=== PATIENT | male | born 1960 | race Caucasian/White ===

== ENCOUNTER 2020-02-24 13:58 | Outpatient (CLI) | payer OTHER, SELFPAY ==
[2020-02-24 15:30] LABS: Basophils % 0.6 %; Eosinophils # 0.3 10^3/uL (0.0-0.8); Eosinophils % 5.7 %; Hemoglobin 14.4 g/dL (11.7-16.6); Lymphocytes % 20.9 %; Mean Corpuscular Hemoglobin 28.3 pg (28.0-34.0); Mean Corpuscular Volume 88.6 fL (80-94); Mean Platelet Volume 11.2 fL (7.4-10.4); Monocytes # 0.6 10^3/uL (0.2-0.9); Monocytes % 11.7 %; Neutrophils % 60.9 %; Nucleated Red Blood Cells % 0 %; Platelet Count 90 10^3/cmm (130-400); Red Blood Count 5.08 10^6/uL (4.1-5.3); Red Cell Distribution Width 14.2 % (12.1-15.1); White Blood Count 4.9 10^3/uL (4.0-10.0)
[2020-02-24 16:00] LABS: Alanine Aminotransferase 26 U/L (0-41); Albumin Level 3.8 g/dL (3.5-5.2); Alkaline Phosphatase 119 IU/L (40-130); Anion Gap 12.9 (5-19); Aspartate Amino Transferase 34 U/L (0-40); Blood Urea Nitrogen 11 mg/dL (6-20); Calcium 9.4 mg/dL (8.5-10.5); Carbon Dioxide 25 mmol/L (22-29); Chloride 102 mmol/L (98-107); Globulin 4.6 g/dL (1.3-4.6); Glomerular Filtration Rate 98.9 mL/min (90-130); Glucose 208 mg/dL (65-115); Osmolality Calculated 284 mOsm/kg (285-295); Potassium 3.9 mmol/L (3.5-5.1); Sodium 136 mmol/L (136-145); Total Protein 8.4 g/dL (6.6-8.7)
== END 2020-02-24 13:59 | disposition home or self-care (01) ==
LOC: LAB 14:12
PROVIDERS: Visit Provider Nurse Practitioner
DX: Z01.89 Encounter for other specified special examinations (principal)
CPT/HCPCS: 80053; 84443; 85025

== ENCOUNTER 2023-10-14 19:23 | Inpatient (IN) | payer OTHER, SELFPAY ==
[2023-10-14 19:24] VITALS: BP 118/61; PULSE 78; RESP 15; TEMP 37.7; O2SAT 94; BMI 22.3
--- NOTE | 2023-10-14 19:35 | CTR_ITS ---
PROCEDURE INFORMATION: Exam: CT Head Without Contrast Exam date and time: 10/15/2023 12:38 AM Age: 62 years old Clinical indication: Altered mental status/memory loss; Patient HX: Confused; Additional info: Head injury TECHNIQUE: Imaging protocol: Computed tomography of the head without contrast. Radiation optimization: All CT scans at this facility use at least one of these dose optimization techniques: automated exposure control; mA and/or kV adjustment per patient size (includes targeted exams where dose is matched to clinical indication); or iterative reconstruction. REPORTING DATA: Count of CT and Cardiac NM exams in prior 12 months: This patient has received 0 known CTs and 0 known cardiac nuclear medicine studies in the 12 months prior to the current study. COMPARISON: No relevant prior studies available. RADIATION DOSE METRICS: Total DLP (mGy-cm): 1123.03 FINDINGS: Brain: No acute intracranial hemorrhage. No acute territorial region of awde-white dedifferentiation. No extra-axial collection. No mass effect or midline shift. Encephalomalacia/gliosis in left frontoparietal and right temporo-occipital lobes, consistent with sequela of remote infarcts. Small remote right cerebellar infarct and chronic appearing bilateral basal ganglia lacunar infarcts. Generalized cerebral atrophy. Moderate to severe burden of nonspecific white matter hypoattenuation, most likely chronic microvascular ischemic change. No acute intracranial hemorrhage. No extra-axial collection. No mass effect or midline shift. Cerebral ventricles: No acute hyrocephalus. Paranasal sinuses: Visualized sinuses are well-aerated. No fluid levels. Mastoid air cells: Visualized mastoid air cells are well aerated. Orbital cavities: No acute abnormality. Bones/joints: No acute calvarial fracture. Soft tissues: No acute abnormality. CT/CT head wo con* [id number] IMPRESSION: 1. No acute intracranial hemorrhage. 2. No evidence of acute territorial infarct. Multifocal encephalomalacia/gliosis and moderate to severe background chronic microvascular ischemic change. Given this may mask foci of acute ischemia and no prior imaging is available for comparison, if there is high clinical suspicion for acute infarct, recommend MRI.
[2023-10-14] MEDS: sodium chloride 0.9% 1,000 ML 999 ML IV ×2 (19:55→21:42)
[2023-10-14 20:04] LABS: Basophils % 0.4 %; Eosinophils # 0.3 10^3/uL (0.0-0.8); Hematocrit 33.9 % (37-53); Lymphocytes # 0.6 10^3/uL (0.8-4.8); Lymphocytes % 12.7 %; Mean Corpuscular HGB Conc 33.9 g/dL (30-55); Mean Corpuscular Hemoglobin 31.7 pg (27-33); Mean Corpuscular Volume 93.4 fl (82-101); Mean Platelet Volume 10.7 fL (7.4-10.4); Monocytes # 0.7 10^3/uL (0.2-0.9); Monocytes % 14.5 %; Neutrophils # 2.96 10^3/uL (1.8-7.7); Nucleated Red Blood Cells % 0 %; Platelet Count 81 10^3/cmm (157-399); Red Blood Count 3.63 10^6/uL (3.85-5.65); Red Cell Distribution Width 17.6 % (12.1-15.1); White Blood Count 4.49 10^3/uL (3.29-11.43)
[2023-10-14 20:17] LABS: INR 1.55 (0.8-1.2)
[2023-10-14 20:18] LABS: Alanine Aminotransferase 48 U/L (0-41); Albumin Level 2.2 g/dL (3.5-5.2); Alkaline Phosphatase 166 U/L (40-130); Anion Gap 10.5 (5-19); Aspartate Amino Transferase 83 U/L (0-40); Blood Urea Nitrogen 10 mg/dL (8-23); Calcium 7.9 mg/dL (8.5-10.5); Carbon Dioxide 25 mmol/L (22-29); Chloride 98 mmol/L (98-107); Globulin 4.2 g/dL (1.3-4.6); Glomerular Filtration Rate 168.5 mL/min (90-130); Glucose 86 mg/dL (65-115); Osmolality Calculated 268 mOsm/kg (285-295); Potassium 3.5 mmol/L (3.5-5.1); Sodium 130 mmol/L (136-145); Total Bilirubin 2.5 mg/dL (0.15-1.2); Total Protein 6.4 g/dL (6.6-8.7)
[2023-10-14 20:19] LABS: Lactic Sepsis W/Reflex 1.4 mmol/L (0.5-2.2); Partial Thromboplastin Time 50.4 SECONDS (23.9-36.7)
[2023-10-14 20:23] LABS: Creatine Phosphokinase 625 U/L (39-308)
[2023-10-14 20:33] LABS: Ammonia 62 umol/L (16-60)
[2023-10-14 20:34] VITALS: BP 106/66; PULSE 103; RESP 18; O2SAT 96
[2023-10-14] MEDS: ketorolac 30 mg/mL INJ IVP (21:42)
[2023-10-14] MEDS: vancomycin 2,000 MG/400 ML PIGGYBACK 200 MG IV (21:43)
[2023-10-14 22:00] VITALS: PULSE 117
--- NOTE | 2023-10-14 22:13 | CTR_ITS ---
PROCEDURE INFORMATION: Exam: CT Abdomen And Pelvis With Contrast Exam date and time: 10/15/2023 12:43 AM Age: 62 years old Clinical indication: Abdominal pain; Generalized; Additional info: Abd pain TECHNIQUE: Imaging protocol: Computed tomography of the abdomen and pelvis with contrast. Radiation optimization: All CT scans at this facility use at least one of these dose optimization techniques: automated exposure control; mA and/or kV adjustment per patient size (includes targeted exams where dose is matched to clinical indication); or iterative reconstruction. Contrast material: OMNI 350; Contrast volume: 100 ml; Contrast route: INTRAVENOUS (IV); REPORTING DATA: Count of CT and Cardiac NM exams in prior 12 months: This patient has received 0 known CTs and 0 known cardiac nuclear medicine studies in the 12 months prior to the current study. COMPARISON: CR (CHEST, ) 10/15/2023 12:29 AM RADIATION DOSE METRICS: Total DLP (mGy-cm): 1195.53 FINDINGS: Pleural spaces: Small left and trace right pleural effusions. Subsegmental atelectasis in the right lung Liver: Cirrhosis. Sequela of portal hypertension, including splenomegaly, extensive portosystemic collaterals including large gastric and esophageal varices, and large volume ascites. Few circumscribed fluid density lesions in the liver, most likely cysts. Gallbladder and bile ducts: Prominent gallbladder venous collaterals. Pancreas: Mild pancreatic atrophy. No main duct dilation. Spleen: See Liver finding. Adrenal glands: Unremarkable. Kidneys and ureters: No hydronephrosis or hydroureter. No renal or ureteral calculi. Stomach and bowel: Colonic diverticula without CT evidence of acute diverticulitis. No bowel obstruction. Submucosal edema in the gastric antrum/pylorus. Appendix: Appendix is normal. Intraperitoneal space: See Liver finding. Vasculature: Moderate atherosclerosis. No aortic aneurysm. Enlarged mesenteric veins. Main portal vein is thrombosed with multiple venous collaterals in the macy hepatis, suggesting chronic thrombosis. Segment of the SMV is thrombosed. Lymph nodes: Diffuse upper abdominal, mesenteric, and to a lesser extent retroperitoneal adenopathy. There is also inguinal adenopathy. Urinary bladder: Unremarkable as visualized. Reproductive: Unremarkable as visualized. Bones/joints: No acute fracture. Right femur cephalomedullary gee and screw. Soft tissues: Small umbilical hernia containing congested fat. Mild diffuse body wall anasarca. Gynecomastia. Other findings: Sequela of granulomatous disease. CT/CT abdomen pelvis w con* [id number] IMPRESSION: 1. Cirrhosis with sequela of portal hypertension, including splenomegaly, extensive portosystemic collaterals including large gastric and esophageal varices, and large volume ascites. 2. Main portal vein is thrombosed with multiple venous collaterals in the macy hepatis, suggesting chronic thrombosis/cavernous transformation. Segment of the SMV is thrombosed. 3. Submucosal edema in the gastric antrum/pylorus, can be seen with gastritis or portal gastropathy. 4. Nonspecific lymphadenopathy may be related to portal hypertension. 5. Small left and trace right pleural effusions and right basilar atelectasis. Cardiomegaly.
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
[2023-10-14 22:37] LABS: Alcohol Level < 10 mg/dL (0-10)
[2023-10-14 22:48] VITALS: BP 92/60; PULSE 86; RESP 16; O2SAT 90
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
--- NOTE | 2023-10-14 23:36 | XRR_ITS ---
PROCEDURE INFORMATION: Exam: XR Chest Exam date and time: 10/15/2023 12:29 AM Age: 62 years old Clinical indication: Other: Evalaute for effusion TECHNIQUE: Imaging protocol: Radiologic exam of the chest. Views: 1 view. COMPARISON: No relevant prior studies available. FINDINGS: Lungs: Mild pulmonary vascular congestion. Right basilar atelectasis. Pleural spaces: Small left and trace right pleural effusions, better appreciated on same-day CT abdomen/pelvis. Heart/Mediastinum: Cardiomegaly. Bones/joints: No acute abnormality. XR/XR chest 1V portable [id number] IMPRESSION: 1. Small left and trace right pleural effusions, better appreciated on same-day CT abdomen/pelvis. Right basilar atelectasis. 2. Cardiomegaly. 3. Mild pulmonary vascular congestion.
[2023-10-14 23:52] LABS: CKMB 8.6 ng/mL (0-10.4); CKMB Relative Index 1.3 % (0.0-5.3)
[2023-10-15] VITALS (227 sets, daily range): BP systolic 71–134; BP diastolic 37–86; PULSE 80–126; RESP 5–39; TEMP 36.1–38.3; O2SAT 73–100; BMI 28.3
[2023-10-15] MEDS: iohexol 350 mg/mL 500 mL Btl (per mL) IV (00:49)
--- NOTE | 2023-10-15 01:09 | PC.NURSE ---
RN counted belongings with Nurse Tech at nurse's station and in front of pt. Pt had a shirt and pair of pants placed into a bag. 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 These items were placed into a bag with pt label on them. Belongings communicated to ICU RNs upon arrival to unit and left in the pt ICU room.
[2023-10-15] MEDS: cefTRIAXone 1,000 MG in sodium chloride 0.9% (plus) 50 ML 100 MG IV ×2 (01:33→23:25)
[2023-10-15 01:40] LABS: Influenza A by IFA negative (Negative); Influenza B by IFA negative (Negative); SARS Covid-2 Antigen negative (Negative)
[2023-10-15] MEDS: lactulose oral liq 20 gm/30 mL UDC PO ×4 (02:03→22:36)
[2023-10-15] MEDS: ondansetron 2 mg/ML SDV 2 mL 4 MG IVP (02:07)
--- NOTE | 2023-10-15 03:18 | PC.NURSE ---
Patient arrived on unit 0055. Patient oriented to self and place, confused to year and situation. Intermittent episodes of confusion and irritation with staff. Patient has been unable to void and bladder scan is questionable due to ascites. Hospitalist notified of concerns and requested staff not to attempt another catheter unless patient is symptomatic.
[2023-10-15 04:59] LABS: Amphetamines Screen Urine Negative (Negative); Barbiturates Screen Urine Negative (Negative); Benzodiazepines Screen Urine Negative (Negative); Cocaine Screen Urine Negative (Negative); Opiate Screen Urine Negative (Negative); PCP Screen Urine Negative (Negative); THC Screen Urine Positive (Negative)
[2023-10-15] MEDS: TRAMadol 50 mg Tablet PO (06:03)
[2023-10-15 06:05] LABS: Basophils # 0.1 10^3/uL (0.0-0.1); Basophils % 1.1 %; Eosinophils # 0.3 10^3/uL (0.0-0.8); Eosinophils % 7.7 %; Hematocrit 36.6 % (37-53); Lymphocytes # 0.6 10^3/uL (0.8-4.8); Lymphocytes % 12.5 %; Mean Corpuscular HGB Conc 32.8 g/dL (30-55); Mean Corpuscular Hemoglobin 31.7 pg (27-33); Mean Corpuscular Volume 96.8 fl (82-101); Mean Platelet Volume 10.7 fL (7.4-10.4); Monocytes # 0.5 10^3/uL (0.2-0.9); Neutrophils # 2.92 10^3/uL (1.8-7.7); Neutrophils % 66.5 %; Nucleated Red Blood Cells % 0 %; Platelet Count 75 10^3/cmm (157-399); Red Blood Count 3.78 10^6/uL (3.85-5.65); Red Cell Distribution Width 17.8 % (12.1-15.1)
--- NOTE | 2023-10-15 06:20 | ECG_ITS ---
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 Measurements Intervals [place] Rate: 116 P: 74 MT: 174 QRS: 12 QRSD: 100 T: 156 QT: 321 QTc: 448 Interpretive Statements SINUS TACHYCARDIA WITH OCCASIONAL VENTRICULAR PREMATURE COMPLEXES ST DEVIATION AND MODERATE T-WAVE ABNORMALITY, CONSIDER LATERAL ISCHEMIA [-0.1+ mV T WAVE IN I/aVL/V5/V6] INTERPRETATION BASED ON A DEFAULT AGE OF 40 YEARS No previous ECG available for comparison Electronically Signed On 10-15-2023 9:15:20 [facility] TECHNICIAN by Jean Claude Schmitt M.D. [id number]
[2023-10-15 06:22] LABS: Ammonia 69 umol/L (16-60)
[2023-10-15 06:29] LABS: Alanine Aminotransferase 49 U/L (0-41); Albumin Level 2.1 g/dL (3.5-5.2); Alkaline Phosphatase 142 U/L (40-130); Anion Gap 11.5 (5-19); Aspartate Amino Transferase 82 U/L (0-40); Blood Urea Nitrogen 9 mg/dL (8-23); Calcium 7.7 mg/dL (8.5-10.5); Carbon Dioxide 24 mmol/L (22-29); Chloride 101 mmol/L (98-107); Globulin 4.1 g/dL (1.3-4.6); Glomerular Filtration Rate 168.5 mL/min (90-130); Glucose 72 mg/dL (65-115); Osmolality Calculated 273 mOsm/kg (285-295); Potassium 3.5 mmol/L (3.5-5.1); Sodium 133 mmol/L (136-145); Total Bilirubin 3.1 mg/dL (0.15-1.2); Total Protein 6.2 g/dL (6.6-8.7)
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
[2023-10-15] MEDS: albumin 25 G/100 ML BAG 60 G IV ×2 (08:01→14:29)
[2023-10-15] MEDS: pantoprazole DR 40 mg Tablet PO (08:40)
[2023-10-15] MEDS: folic acid 1 mg Tablet PO (08:40)
[2023-10-15] MEDS: multivitamin therapeutic Tablet 1 TAB PO (08:40)
[2023-10-15] MEDS: thiamine 100 mg Tablet PO (08:40)
--- NOTE | 2023-10-15 09:00 | US_ITS ---
WS: [id number] ULTRASOUND-GUIDED PARACENTESIS CLINICAL INFORMATION: ascites COMPARISON: None. Procedure Informed consent: The risks, benefits, and alternatives of the procedure were discussed with the chintan ent. Verbal and written consent was obtained. Timeout: A timeout was performed to confirm the correct patient, procedure, and site. Preparation: A suitable skin site was identified. The patient was prepped and draped in usual sterile fashion. Lidocaine 1% was used for local anesthesia. Catheter: 4 Upper Sorbian One-step Yueh catheter. Side: RIGHT lower quadrant. Fluid Volume: 6500 ml Color: Clear yellow DISPOSITION: Discarded safely. Complications: None. Patient disposition: Discharged from the department in stable condition. IMPRESSION: 1. Uncomplicated ultrasound-guided paracentesis. 2. Removal of 6500 cc 3. 50 cc of fluid sent for requested laboratory tests.
--- NOTE | 2023-10-15 09:13 | PC.PHAR ---
Pharmacokinetic dosing service Date: 10/15/23 Time: 914 Objective: Patient: Naldo Steve Floor: ICU-10 Age: 62 yo Serum creatinine: 0.5 mg/dL Height: 73.0 Inches Weight (kg): 97.522 Diagnosis: Relevant medical/social history: Cultures and sensitivities: Other labs: Assessment: IBW (kg): 79.90 Dosing wt(kg): 97.522 Estimated Creatinine clearance (ml/min): 130 Clearance limited to 130 ml/min to reduce risk of overdosing. CRCL method: Cockcroft and Gault using ibw(default). Drug selected: Vancomycin Loading dose (mg): 0 Vd (liters): 87.8 (factor used: 0.9 L/kg) Artur (hr-1): 0.112 Half life (hrs): 6.19 Recommended dose: 1500 mg Interval: 8 hrs Infusion time (hrs): 1.5 Predicted peak (mcg/mL): 26.6 Predicted trough (mcg/mL): 12.84 Total body weight is being used for vancomycin dosing. Renal function is stable [ ] /unstable [ ] Recommendations: Give Vancomycin 1500 mg q 8 hrs with an expected Cpeak of 26.6 mcg/ml and an expected Ctrough of 12.84 mcg/ml Renal dosing of other antibiotics (review renal dosing of other medications and list guidelines here): Thank you for the consult, will continue to follow. Signature: Angela Ruano [facility]
[2023-10-15 10:31] LABS: Add Urine Culture? Yes; Bacteria Urine 1+ /hpf; Bilirubin Urine 1+ (Negative); Blood Urine 3+ (Negative); Calcium Oxalate Crystals Urine 25-40 /hpf; Glucose Urine UA Norm (Normal); Ketones Urine Negative (Negative); Leukocyte Esterase Urine 1+ (Negative); Nitrate Urine Positive (Negative); Protein Urine 1+ (Negative); RBC Urine 0-4 /hpf (0-2); Specific Gravity, Urine 1.015 (1.005-1.030); Squamous Epithelial Cell Urine 0-4 /hpf (0-5); Urine Appearance Hazy (CLEAR); Urine Color Dark Yellow (Yellow); Urobilinogen Urine 4+ mg/dL (Negative); WBC Urine 55-80 /hpf (0-5); pH Urine 5 (5-7)
--- NOTE | 2023-10-15 10:32 | PC.NURSE ---
Time out performed procedure at 1027. manufacturing technician, Dr. Daly, and this nurse present, verified patient name date of , allergies, procedure, and patient understanding of procedure.
[2023-10-15] MEDS: vancomycin 1,500 MG/300 ML PIGGYBACK 200 MG IV ×2 (11:25→17:24)
[2023-10-15 11:33] LABS: Apprearance, Body Fluid TURBID; Color, Body Fluid PALE YELLOW; Fluid Laterality ASCITES; PATH Referral YES
[2023-10-15 11:35] LABS: Cyto Order Verification Order Verified
[2023-10-15 11:51] LABS: Body Fluid Polynuclear #Cells 0.027; Body Fluid WBC 86 /uL; Monocytes # Body Fluid 0.059
[2023-10-15 11:54] LABS: Body Fluid Specific Gravity 1.015
[2023-10-15 11:59] LABS: Albumin Body Fluid 0.3 g/dL; Amylase Body Fluid 28 U/L; Cholesterol Body Fluid < 4 mg/dL (0-200); Fluid Alkaline Phos. 14 IU/L; Total Protein Body Fluid 0.5 g/dL; Triglycerides Body Fluid 39 mg/dL (0-150)
[2023-10-15 12:19] LABS: Glucose Point of Care 65 mg/dL (70-110)
[2023-10-15] MEDS: dextrose 50% syringe 50 mL IVP (12:21)
[2023-10-15 14:08] LABS: Alanine Aminotransferase 41 U/L (0-41); Albumin Level 2.2 g/dL (3.5-5.2); Alkaline Phosphatase 119 U/L (40-130); Anion Gap 9.3 (5-19); Aspartate Amino Transferase 71 U/L (0-40); Blood Urea Nitrogen 9 mg/dL (8-23); Calcium 7.7 mg/dL (8.5-10.5); Carbon Dioxide 25 mmol/L (22-29); Chloride 101 mmol/L (98-107); Globulin 3.6 g/dL (1.3-4.6); Glomerular Filtration Rate 136.5 mL/min (90-130); Glucose 90 mg/dL (65-115); Osmolality Calculated 272 mOsm/kg (285-295); Potassium 3.3 mmol/L (3.5-5.1); Sodium 132 mmol/L (136-145); Total Bilirubin 3.1 mg/dL (0.15-1.2); Total Protein 5.8 g/dL (6.6-8.7)
[2023-10-15] MEDS: lidocaine 1% 5 ML in potassium chloride premix 100 ML 26.25 ML IV (14:30)
[2023-10-15] MEDS: midodrine 5 mg TABLET PO ×2 (16:12→23:33)
[2023-10-15] MEDS: sucralfate 1 gm Tablet PO ×2 (16:12→17:23)
[2023-10-15] MEDS: LORazepam 2 mg Tablet PO (17:24)
[2023-10-15 17:27] LABS: Magnesium 1.7 mg/dL (1.7-2.3)
--- NOTE | 2023-10-15 17:29 | PC.NURSE ---
Patients , Alysa, took home patient belongings that included clothing and wallet.
[2023-10-15 17:48] LABS: Adenovirus Not Detected (NOT DETECT); Chlamydia Pneumoniae Not Detected (NOT DETECT); Coronavirus 229E,HKU1,NL63,OC4 Not Detected (NOT DETECT); Human Metapneumovirus Not Detected (NOT DETECT); Human Rhinovirus/Enterovirus Not Detected (NOT DETECT); Influenza A Not Detected (NOT DETECT); Influenza A H1 Not Detected (NOT DETECT); Influenza A H1-2009 Not Detected (NOT DETECT); Influenza A H3 Not Detected (NOT DETECT); Influenza B Not Detected (NOT DETECT); Mycoplasma Pneumoniae Not Detected (NOT DETECT); Parainfluenza Virus Type 1 Not Detected (NOT DETECT); Parainfluenza Virus Type 2 Not Detected (NOT DETECT); Parainfluenza Virus Type 3 Not Detected (NOT DETECT); Parainfluenza Virus Type 4 Not Detected (NOT DETECT); Respiratory Syncytial Virus A Not Detected (NOT DETECT); Respiratory Syncytial Virus B Not Detected (NOT DETECT)
[2023-10-15 17:55] LABS: SARS-COV-2 Detected (NOT DETECT)
[2023-10-15 18:23] LABS: Glucose Point of Care 115 mg/dL (70-110)
[2023-10-15 21:34] LABS: Glucose Point of Care 95 mg/dL (70-110)
--- NOTE | 2023-10-15 21:45 | PC.NURSE ---
Confusion Patient confused, able to state his name and that he is at the hospital but unable to state what year and which hospital he is at currently. When attempting to administer ordered lactulose, midodrine, and carafate, patient stated he was not taking that shit that he just wanted to sleep and that everyone better just fucking leave me alone. Reorientation and education provided. Following education, patient still insisted that he did not want to do anything and that he just wanted to sleep. Dr. Hawkins notified; orders to be placed by physician.
--- NOTE | 2023-10-15 23:43 | PC.NURSE ---
Lactulose/Midodrine Importance of lactulose and rectal administration explained to patient; patient agreed to take medications orally. Midodrine discussed as well. Lactulose and midodrine administered PO.
[2023-10-15] MEDS: acetaminophen 325 mg Tablet 650 MG PO (23:59)
[2023-10-16] VITALS (56 sets, daily range): BP systolic 78–122; BP diastolic 53–90; PULSE 87–120; RESP 11–24; TEMP 35.8–38.3; O2SAT 87–100; BMI 28.3
--- NOTE | 2023-10-16 | PC.NURSE ---
Albumin Albumin held awaiting consent from family; Dr. Hawkins notified.
--- NOTE | 2023-10-16 00:05 | PC.NURSE ---
Fever Patient's temperature 101F axillary. Dr. Hawkins notified and liver function discussed; verification received to administer 650 mg tylenol PO PRN as ordered for fever.
[2023-10-16] MEDS: vancomycin 1,500 MG/300 ML PIGGYBACK 200 MG IV ×2 (01:03→15:00)
[2023-10-16 03:30] LABS: Glucose Point of Care 109 mg/dL (70-110)
[2023-10-16 05:24] LABS: Basophils % 0.9 %; Eosinophils # 0.3 10^3/uL (0.0-0.8); Eosinophils % 7.8 %; Lymphocytes # 0.6 10^3/uL (0.8-4.8); Lymphocytes % 13.7 %; Mean Corpuscular HGB Conc 31.7 g/dL (30-55); Mean Corpuscular Hemoglobin 31.5 pg (27-33); Mean Corpuscular Volume 99.4 fl (82-101); Mean Platelet Volume 10.7 fL (7.4-10.4); Monocytes # 0.5 10^3/uL (0.2-0.9); Monocytes % 11.6 %; Neutrophils # 2.78 10^3/uL (1.8-7.7); Neutrophils % 65.5 %; Nucleated Red Blood Cells % 0 %; Platelet Count 88 10^3/cmm (157-399); Red Blood Count 3.52 10^6/uL (3.85-5.65); White Blood Count 4.24 10^3/uL (3.29-11.43)
[2023-10-16] MEDS: lactulose oral liq 20 gm/30 mL UDC PO ×4 (05:30→22:06)
--- NOTE | 2023-10-16 05:41 | PC.NURSE ---
Lethargy Patient increasingly lethargic, only responding after painful stimuli applied. All vital signs stable. Dr. Hawkins notified; no new orders received.
[2023-10-16 05:42] LABS: Alanine Aminotransferase 44 U/L (0-41); Albumin Level 2.7 g/dL (3.5-5.2); Alkaline Phosphatase 135 U/L (40-130); Anion Gap 13.7 (5-19); Aspartate Amino Transferase 62 U/L (0-40); Blood Urea Nitrogen 9 mg/dL (8-23); Calcium 8.2 mg/dL (8.5-10.5); Carbon Dioxide 24 mmol/L (22-29); Chloride 100 mmol/L (98-107); Globulin 3.9 g/dL (1.3-4.6); Glomerular Filtration Rate 136.5 mL/min (90-130); Glucose 107 mg/dL (65-115); Osmolality Calculated 277 mOsm/kg (285-295); Potassium 3.7 mmol/L (3.5-5.1); Sodium 134 mmol/L (136-145); Total Protein 6.6 g/dL (6.6-8.7)
[2023-10-16 05:45] LABS: Creatine Phosphokinase 204 U/L (39-308); Magnesium 1.9 mg/dL (1.7-2.3)
[2023-10-16 07:20] LABS: Glucose Point of Care 135 mg/dL (70-110)
[2023-10-16] MEDS: folic acid 1 mg Tablet PO (08:06)
[2023-10-16] MEDS: sucralfate 1 gm Tablet PO ×4 (08:07→20:42)
[2023-10-16] MEDS: multivitamin therapeutic Tablet 1 TAB PO (08:07)
[2023-10-16] MEDS: dexamethasone 10 mg/mL INJ IVP (08:07)
[2023-10-16] MEDS: pantoprazole DR 40 mg Tablet PO (08:07)
[2023-10-16] MEDS: thiamine 100 mg Tablet PO (08:07)
[2023-10-16] MEDS: albumin 25 G/100 ML BAG 60 G IV ×3 (08:07→23:46)
[2023-10-16] MEDS: midodrine 5 mg TABLET 10 MG PO ×3 (08:07→20:41)
[2023-10-16] MEDS: remdesivir 200 MG in sodium chloride 0.9% (100 ml) 60 ML 100 MG IV (08:08)
[2023-10-16] MEDS: OLANZapine 5 mg TABLET (09:24)
[2023-10-16 09:26] LABS: Vancomycin Trough 23.5 ug/mL (10-15)
--- NOTE | 2023-10-16 09:30 | PC.NURSE ---
Pt was sitting up on side of bed eating breakfast and just swiped his arm across the table and dumped food tray and drinks in floor. Upon entering room this nursed asked pt why he dumped his tray all over the floor he replied' Did you see me do it? He was cussing and yelling out the whole time. While this nurse was kneeled cleaning up wet floor. Pt pushed the bedside table over, I was able to move quick enough to be missed. It nearly hit the glass doors in ICU 10. Pt continues to yell and cuss, about being promised pudding, using a phone, a Sprite, etc. and no one brought it. One of the items he had knocked to floor was a fresh Sprite. Dr Ervin notified via telephone of his behavior, Zyprexa 5mg PO ordered. and admin. Dr Ervin then on unit to evaluate pt. Pt assisted back into the bed, all the while yelling out and cussing.
--- NOTE | 2023-10-16 09:48 | P.PN_ITS ---
Subjective 2 Subjective: Naldo is conversant, carries on a full conversation, but intermittently agitated. Medications: Reviewed: Yes Vitals/I&O/Wt Last Vital Signs Temp 98.5 F 10/16/23 04:00 Pulse 89 10/16/23 07:00 Resp 17 10/16/23 07:00 BP 98/59 10/16/23 07:00 Pulse Ox 94 10/16/23 06:15 O2 Del Method Nasal Cannula 10/16/23 03:30 O2 Flow Rate 3 10/16/23 03:30 10/15/23 10/16/23 10/16/23 22:59 06:59 14:59 Intake Total 1155 / 1635 50 / 1685 240 / 240 Balance 1155 / 1235 50 / 1285 240 / 240 Weight last 48 hrs Weight 97.522 kg Weight 97.522 kg Weight 97.522 kg Weight 76.657 kg Physical Exam 2 Narrative: General exam no distress Neck is supple Cardiovascular regular rate and rhythm, no murmur Lungs clear Abdomen soft, ascites noted Extremities 1+ bilateral edema. Skin breakdown noted in feet. Cap refill a little less than 2 seconds. Data 10/16/23 05:11 10/16/23 05:11 Micro: Microbiology 10/15/23 10:10 Gram Stain - Final Peritoneal Fluid Anaerobic Culture - Preliminary 10/15/23 04:30 Urine Culture - Preliminary Urine,Clean Catch A&P Assessment and plan (1) Hepatic encephalopathy: Patient presents with hepatic encephalopathy with elevated ammonia level Continue lactulose, rifaximin Patient is already significantly fluid overloaded. Hold off on any further significant fluids. I cannot completely rule out alcohol withdrawal although patient reports he does not drink anymore. CIWA protocol was added Repeat ammonia level tomorrow Secondary to some odd, somewhat aggressive behaviors will give Zyprexa x 1. Head CT negative Admit (2) Ascites: Patient with significant ascites, from his cirrhosis. He has thrombocytopenia, elevated INR all consistent with his liver disease. Paracentesis i performed October 15, with removal of 6500 cc. PMN count was not significant. Cultures pending. Continue albumin currently secondary to lower blood pressures Creatinine is currently normal Continue Rocephin, vancomycin currently Monitor closely for hepatorenal syndrome. Midodrine added for hypotension. Increase to 10 mg [address] abdomen and pelvis demonstrated gastric and esophageal varices, probable chronic portal vein thrombosis. At this point not a good candidate for any anticoagulation. (3) Rhabdomyolysis: Slightly elevated CK on admission CK has improved. No reason to test further (4) COVID-19: Remdesivir, dexamethasone CRP in the morning Will have to determine from family if he is on any oxygen at home. Patient indicates he may be but history is currently unreliable. CBC, CMP in the morning Plan Lower extremity wounds. Vancomycin added. Local skin care. Avoid pressure. May have some concomitant peripheral vascular disease but will hold off on investigation considering other illnesses currently. Other medical problems as outlined in his past medical history Allow natural currently Hospice referral has also been placed. Family may not be ready for this currently. Attestations 2 Medical Necessity Statement*: Needs continued hospitalization secondary to acute hepatic encephalopathy, Covid 19 requiring treatment. Diagnoses Hepatic encephalopathy K76.82 Ascites R18.8 Rhabdomyolysis M62.82 COVID-19 U07.1 Time Spent (min) 32
--- NOTE | 2023-10-16 10:00 | PC.NURSE ---
Rounding done. Pt continues to yell and cuss. He is lying in bed on his left side. He threw the empty urinal towards the doorway, yelling he could not find the urinal.
--- NOTE | 2023-10-16 10:35 | PC.NURSE ---
Pt has settled down. He is now resting with eyes closed. He still occasionally yells.
[2023-10-16 11:23] LABS: Glucose Point of Care 165 mg/dL (70-110)
[2023-10-16] MEDS: ondansetron 2 mg/ML SDV 2 mL 4 MG IVP (15:24)
[2023-10-16 17:08] LABS: Glucose Point of Care 229 mg/dL (70-110)
--- NOTE | 2023-10-16 17:50 | PC.NURSE ---
Pt yelling and cussing again. His access to his port is out, site bleeding a little. Pressure held. He acknowledges that he pulled it out because he wanted to. He allowed this nurse to access port site again. Albumin restarted.
[2023-10-16] MEDS: LORazepam 2 mg Tablet PO (18:00)
[2023-10-16 19:36] LABS: Glucose Point of Care 217 mg/dL (70-110)
--- NOTE | 2023-10-16 19:36 | PC.NURSE ---
Shift summary: Pt remains confused. He is aware of his name, and where he is at. He is also aware of his yelling. He stated he does that to get what he wants. He has yelling and cussed the majority of the day. He has stated he has been promised ( insert something here) and he has been lied to. He has ate most of his meals, except for his lunch. Which he just put water into every dish. He remains afebrile, sinus rhythm on monitor., VSS. He wears 3lpm/NC majority of the time. He has taken it off and then yelled he could not catch his breath. He has urinated 3 times, incontinent each time. No BMs noted this shift. He has taken all of his medications this shift. His significant other has been in to visit mid day.
[2023-10-16] MEDS: TRAMadol 50 mg Tablet PO (20:41)
[2023-10-16] MEDS: cefTRIAXone 1,000 MG in sodium chloride 0.9% (plus) 50 ML 100 MG IV (22:17)
[2023-10-17] VITALS (49 sets, daily range): BP systolic 89–130; BP diastolic 59–88; PULSE 91–103; RESP 0–23; O2SAT 82–96; BMI 28.3
[2023-10-17] MEDS: ondansetron 2 mg/ML SDV 2 mL 4 MG IVP (01:23)
[2023-10-17] MEDS: vancomycin 1,500 MG/300 ML PIGGYBACK 200 MG IV ×2 (01:23→13:33)
[2023-10-17] MEDS: lactulose oral liq 20 gm/30 mL UDC PO (04:11)
[2023-10-17] MEDS: TRAMadol 50 mg Tablet PO (06:29)
[2023-10-17 06:32] LABS: Basophils % 0.5 %; Eosinophils % 0.5 %; Hematocrit 33.6 % (37-53); Lymphocytes # 0.4 10^3/uL (0.8-4.8); Lymphocytes % 9.2 %; Mean Corpuscular HGB Conc 31.8 g/dL (30-55); Mean Corpuscular Hemoglobin 31.8 pg (27-33); Mean Corpuscular Volume 99.7 fl (82-101); Mean Platelet Volume 10.5 fL (7.4-10.4); Monocytes # 0.4 10^3/uL (0.2-0.9); Monocytes % 9.9 %; Neutrophils # 3.44 10^3/uL (1.8-7.7); Neutrophils % 79.2 %; Nucleated Red Blood Cells % 0 %; Platelet Count 81 10^3/cmm (157-399); Red Blood Count 3.37 10^6/uL (3.85-5.65); Red Cell Distribution Width 17.9 % (12.1-15.1); White Blood Count 4.34 10^3/uL (3.29-11.43)
[2023-10-17] MEDS: remdesivir 100 MG in sodium chloride 0.9% (100 ml) 80 ML IV (06:48)
[2023-10-17 06:51] LABS: Alanine Aminotransferase 37 U/L (0-41); Albumin Level 3.1 g/dL (3.5-5.2); Alkaline Phosphatase 119 U/L (40-130); Anion Gap 12.3 (5-19); Aspartate Amino Transferase 40 U/L (0-40); Blood Urea Nitrogen 13 mg/dL (8-23); C Reactive Protein 91.9 mg/L (0.0-4.9); Calcium 8.9 mg/dL (8.5-10.5); Carbon Dioxide 25 mmol/L (22-29); Chloride 99 mmol/L (98-107); Globulin 3.6 g/dL (1.3-4.6); Glomerular Filtration Rate 136.5 mL/min (90-130); Glucose 165 mg/dL (65-115); Osmolality Calculated 278 mOsm/kg (285-295); Potassium 4.3 mmol/L (3.5-5.1); Sodium 132 mmol/L (136-145); Total Bilirubin 2.1 mg/dL (0.15-1.2); Total Protein 6.7 g/dL (6.6-8.7)
[2023-10-17 07:07] LABS: Ammonia 149 umol/L (16-60)
[2023-10-17] MEDS: lactulose oral liq 20 gm/30 mL UDC 30 GM PO ×3 (08:31→19:02)
[2023-10-17] MEDS: dexamethasone 10 mg/mL INJ 6 MG IVP (08:31)
[2023-10-17] MEDS: sucralfate 1 gm Tablet PO ×4 (08:32→21:21)
[2023-10-17] MEDS: multivitamin therapeutic Tablet 1 TAB PO (08:32)
[2023-10-17] MEDS: thiamine 100 mg Tablet PO (08:32)
[2023-10-17] MEDS: albumin 25 G/100 ML BAG 60 G IV ×3 (08:32→23:53)
[2023-10-17] MEDS: folic acid 1 mg Tablet PO (08:32)
[2023-10-17] MEDS: pantoprazole DR 40 mg Tablet PO (08:32)
[2023-10-17] MEDS: midodrine 5 mg TABLET 10 MG PO ×3 (08:32→21:21)
--- NOTE | 2023-10-17 11:02 | P.PN_ITS ---
Subjective 2 Subjective: Naldo just received some Ativan before I saw him. He is still confused. Ammonia level is higher today. He has not had significant bowel movements yet. Medications: Reviewed: Yes Vitals/I&O/Wt Last Vital Signs Temp 96.5 F L 10/16/23 21:00 Pulse 96 10/17/23 10:30 Resp 20 H 10/17/23 10:30 BP 108/78 10/17/23 10:30 Pulse Ox 96 10/17/23 09:30 O2 Del Method Nasal Cannula 10/17/23 09:30 O2 Flow Rate 3 10/17/23 09:30 10/16/23 10/17/23 10/17/23 22:59 06:59 14:59 Intake Total 600 / 1040 580 / 1620 230 / 230 Balance 600 / 1040 580 / 1620 230 / 230 Weight last 48 hrs Weight 97.522 kg Weight 97.522 kg Physical Exam 2 Narrative: General exam no distress Neck is supple Cardiovascular regular rate and rhythm, no murmur Lungs clear Abdomen soft, ascites noted Extremities 1+ bilateral edema. Skin breakdown noted in feet. Cap refill a little less than 2 seconds. Data 10/17/23 06:20 10/17/23 06:20 Micro: Microbiology 10/15/23 10:10 Gram Stain - Final Peritoneal Fluid Anaerobic Culture - Preliminary Body Fluid Culture - Preliminary 10/15/23 04:30 Urine Culture - Preliminary Urine,Clean Catch A&P Assessment and plan (1) Hepatic encephalopathy: Patient presents with hepatic encephalopathy with elevated ammonia level Continue lactulose, rifaximin. Increase lactulose dosing Patient is already significantly fluid overloaded. Hold off on any further significant fluids. I cannot completely rule out alcohol withdrawal although patient reports he does not drink anymore. CIWA protocol was added. This includes folate and thiamine. Girlfriend reports that he has not used alcohol in the last year however. Repeat ammonia level tomorrow. Today's higher. Increase lactulose as above. (2) Ascites: Patient with significant ascites, from his cirrhosis. He has thrombocytopenia, elevated INR all consistent with his liver disease. Paracentesis i performed October 15, with removal of 6500 cc. PMN count was not significant. Cultures pending. Continue albumin currently secondary to lower blood pressures Creatinine is currently normal Continue Rocephin, vancomycin currently awaiting cultures Monitor closely for hepatorenal syndrome. Midodrine added for hypotension. Increased to 10 mg [address] abdomen and pelvis demonstrated gastric and esophageal varices, probable chronic portal vein thrombosis. At this point not a good candidate for any anticoagulation. Liver tests are improving (3) Rhabdomyolysis: Slightly elevated CK on admission CK has improved. No reason to test further (4) COVID-19: Remdesivir, dexamethasone CRP approximately 90. He is on 2 L at oxygen at home occasionally. He is requiring 3 L here. CBC, CMP in the morning Plan Lower extremity wounds. Vancomycin added. Local skin care. Avoid pressure. May have some concomitant peripheral vascular disease but will hold off on investigation considering other illnesses currently. Other medical problems as outlined in his past medical history Allow natural currently Attestations 2 Medical Necessity Statement*: Needs continued hospitalization secondary to continued hepatic encephalopathy, with high risk for decompensation. Not yet improved. Close electrolyte and fluid management as needed. Diagnoses Hepatic encephalopathy K76.82 Ascites R18.8 Rhabdomyolysis M62.82 COVID-19 U07.1 Time Spent (min) 25
[2023-10-17 11:47] LABS: Glucose Point of Care 154 mg/dL (70-110)
[2023-10-17 16:41] LABS: Glucose Point of Care 138 mg/dL (70-110)
[2023-10-17 16:41] LABS: Glucose Point of Care 134 mg/dL (70-110)
--- NOTE | 2023-10-17 19:42 | PC.NURSE ---
Shift summary: Pt is more somnolent and obtunded. at beginning of shift. He still yells out and cusses. He has been able to take all of his medications this shift. He refuses the Lactulose at first this evening, but if offered again he finishes it. He has ate small portions of every meal, but not nearly as much as his food intake of yesterday.Earlier afternoon his hand was on his port access line and he was pulling at dressing and needle, this nurse was able to intervene in time that port access is ok, just redressed site. He has been incontinent of urine 3 times this shift. NO Bm this shift, but flatulence noted several times. Pt has denied needing to use the toilet.
[2023-10-17 21:59] LABS: Glucose Point of Care 140 mg/dL (70-110)
[2023-10-17] MEDS: cefTRIAXone 1,000 MG in sodium chloride 0.9% (plus) 50 ML 100 MG IV (23:13)
[2023-10-18] VITALS (46 sets, daily range): BP systolic 101–136; BP diastolic 69–99; PULSE 92–117; RESP 9–21; TEMP 35.8–37.2; O2SAT 90–96; BMI 28.3
[2023-10-18] MEDS: vancomycin 1,500 MG/300 ML PIGGYBACK 200 MG IV (01:34)
[2023-10-18] MEDS: lactulose oral liq 20 gm/30 mL UDC 30 GM PO ×3 (01:35→11:36)
[2023-10-18] MEDS: TRAMadol 50 mg Tablet PO (02:04)
--- NOTE | 2023-10-18 02:44 | PC.NURSE ---
Patient pulled out port line. When asked why they did that the patient stated that they did not know they pulled it out. Port site was cleansed with chloraprep and port line was replaced.
[2023-10-18 04:59] LABS: Basophils % 0.3 %; Eosinophils # 0.1 10^3/uL (0.0-0.8); Eosinophils % 0.7 %; Hematocrit 36.3 % (37-53); Lymphocytes # 0.6 10^3/uL (0.8-4.8); Lymphocytes % 8.2 %; Mean Corpuscular Hemoglobin 31.9 pg (27-33); Mean Corpuscular Volume 99.7 fl (82-101); Mean Platelet Volume 10.9 fL (7.4-10.4); Monocytes # 0.8 10^3/uL (0.2-0.9); Monocytes % 11.2 %; Neutrophils # 5.94 10^3/uL (1.8-7.7); Neutrophils % 78.9 %; Nucleated Red Blood Cells % 0 %; Platelet Count 119 10^3/cmm (157-399); Red Blood Count 3.64 10^6/uL (3.85-5.65); Red Cell Distribution Width 18.6 % (12.1-15.1); White Blood Count 7.52 10^3/uL (3.29-11.43)
[2023-10-18 05:16] LABS: INR 2.15 (0.8-1.2)
[2023-10-18 05:24] LABS: Ammonia 65 umol/L (16-60)
[2023-10-18 05:25] LABS: Alanine Aminotransferase 34 U/L (0-41); Albumin Level 3.5 g/dL (3.5-5.2); Alkaline Phosphatase 119 U/L (40-130); Anion Gap 15.4 (5-19); Aspartate Amino Transferase 32 U/L (0-40); Blood Urea Nitrogen 18 mg/dL (8-23); Carbon Dioxide 22 mmol/L (22-29); Chloride 103 mmol/L (98-107); Globulin 3.3 g/dL (1.3-4.6); Glomerular Filtration Rate 114.3 mL/min (90-130); Glucose 131 mg/dL (65-115); Osmolality Calculated 286 mOsm/kg (285-295); Potassium 4.4 mmol/L (3.5-5.1); Sodium 136 mmol/L (136-145); Total Bilirubin 2.5 mg/dL (0.15-1.2); Total Protein 6.8 g/dL (6.6-8.7)
[2023-10-18] MEDS: dexamethasone 10 mg/mL INJ 6 MG IVP (07:58)
[2023-10-18] MEDS: remdesivir 100 MG in sodium chloride 0.9% (100 ml) 80 ML IV (07:58)
[2023-10-18] MEDS: albumin 25 G/100 ML BAG 60 G IV ×3 (07:59→23:43)
--- NOTE | 2023-10-18 08:12 | ECG_ITS ---
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 Measurements Intervals [place] Rate: 92 P: 48 HI: 188 QRS: 14 QRSD: 124 T: 77 QT: 356 QTc: 442 Interpretive Statements SINUS RHYTHM WITH SINUS ARRHYTHMIA Compared to ECG 10/15/2023 06:20:43 Sinus tachycardia no longer present Ventricular premature complex(es) no longer present T-wave abnormality no longer present Possible ischemia no longer present Electronically Signed On 10-18-2023 13:33:52 DIRECTOR MISS[place] by Jean Claude Schmitt M.D. [email or web address]
[2023-10-18 08:34] LABS: Glucose Point of Care 117 mg/dL (70-110)
[2023-10-18 09:16] LABS: Troponin(5th) Baseline 84 ng/L (0-15)
[2023-10-18] MEDS: folic acid 1 mg Tablet PO (09:43)
[2023-10-18] MEDS: midodrine 5 mg TABLET 10 MG PO (09:43)
[2023-10-18] MEDS: pantoprazole DR 40 mg Tablet PO (09:44)
[2023-10-18] MEDS: multivitamin therapeutic Tablet 1 TAB PO (09:44)
[2023-10-18] MEDS: sucralfate 1 gm Tablet PO ×3 (09:45→16:44)
[2023-10-18 09:47] LABS: NT Pro B Type Natriuretic Pept 44330 pg/mL (0-125)
[2023-10-18] MEDS: meropenem 1,000 MG in sodium chloride 0.9% (plus) 50 ML 100 MG IV ×2 (09:48→16:44)
[2023-10-18 10:32] LABS: Troponin 5 2HR 85.34 ng/L (0-15); Troponin 5 2HR Delta 1.34 ABS# (0-10)
[2023-10-18 11:24] LABS: Glucose Point of Care 124 mg/dL (70-110)
[2023-10-18 16:10] LABS: Troponin 5 6HR 79.34 ng/L (0-15)
[2023-10-18 16:11] LABS: Troponin 5 6HR Delta -4.66 ng/L (0-12)
--- NOTE | 2023-10-18 16:54 | P.PN_ITS ---
Subjective 2 Subjective: Patient was seen this morning, he is alert to person, not to place, not to time, his ammonia level 65 he is afebrile overnight, normotensive on 2 L, he does not follow commands, does withdraw from pain, pupils equal round reactive to light, has been encephalopathic as per nursing staff in the last 24 to 48 hours, Vitals/I&O/Wt Last Vital Signs Temp 96.5 F L 10/18/23 04:43 Pulse 98 10/18/23 14:04 Resp 12 10/18/23 14:00 BP 129/92 10/18/23 14:00 Pulse Ox 90 10/18/23 13:30 O2 Del Method Nasal Cannula 10/18/23 13:30 O2 Flow Rate 2 10/18/23 13:30 10/18/23 10/18/23 10/18/23 06:59 14:59 22:59 Intake Total 1130 / 1130 Output Total 400 / 400 Balance 730 / 730 Weight last 48 hrs Weight 97.522 kg Weight 97.522 kg Physical Exam 2 Const: COMMON NORMALS: no acute distress EXAM LIMITATIONS: altered mental status ORIENTATION/CONSCIOUSNESS: Yes awake, Yes oriented to person and Yes confused; not oriented to place and not oriented to time Neck/C-Spine: COMMON NORMALS: no JVD Resp: COMMON NORMALS: normal respiratory effort, No retractions, No use of accessory muscles and clear to auscultation bilaterally AUSCULTATION: clear to auscultation bilaterally Cardio: COMMON NORMALS: no JVD, regular rate, regular rhythm, S1 normal heart sound present and S2 normal heart sound present RATE: regular rate RHYTHM: regular rhythm HEART SOUNDS: S1 normal heart sound present and S2 normal heart sound present GI: OTHER: Abdomen is distended, no guarding, rebound, rigidity, no tenderness Extremity: COMMON NORMALS: capillary refill normal and no pedal edema Neuro: SENSORIUM/ORIENTATION: Yes oriented to person, No oriented to place and No oriented to time Data 10/18/23 04:52 10/18/23 04:52 Micro: Microbiology 10/15/23 10:10 Gram Stain - Final Peritoneal Fluid Anaerobic Culture - Preliminary Body Fluid Culture - Final 10/14/23 20:10 Blood Culture - Preliminary Blood 10/14/23 19:50 Blood Culture - Preliminary Blood 10/15/23 04:30 Urine Culture - Final Urine,Clean Catch A&P Assessment and plan (1) Hepatic encephalopathy: (2) Ascites: (3) Rhabdomyolysis: (4) COVID-19: (5) Acute encephalopathy: (6) NSTEMI (non-ST elevated myocardial infarction): (7) Thrombocytopenia: Plan Acute encephalopathy -Etiology unclear, - could be from hepatic encephalopathy, hyperammonemia, ammonia level 65, continue lactulose examination -Could be from possible history of alcoholism? Start high-dose thiamine correction - this could be from COVID-19 -Follow blood cultures, ? Will consider MRI of the brain based on clinical progress ?will consider lumbar puncture based on clinical progress ? Broaden antibiotic coverage to vancomycin, meropenem Hepatic encephalopathy ?continue lactulose ? Continue rifaximin Ascites ?currently abdomen is distended, no significant guarding, no rebound, rigidity ? Status post paracentesis October 15 6500 cc removed -Concerns for possible SBP? ? Currently cultures are negative, ? Broaden antibiotic coverage to vancomycin, meropenem Liver cirrhosis -Albumin 3.5, INR 2.15, creatinine 0.7, bili 2.5, ?1. Cirrhosis with sequela of portal hypertension, including splenomegaly, extensive portosystemic collaterals including large gastric and esophageal varices, and large volume ascites. 2. Main portal vein is thrombosed with multiple venous collaterals in the macy hepatis, suggesting chronic thrombosis/cavernous transformation. Segment of the SMV is thrombosed. 3. Submucosal edema in the gastric antrum/pylorus, can be seen with gastritis or portal gastropathy. 4. Nonspecific lymphadenopathy may be related to portal hypertension. 5. Small left and trace right pleural effusions and right basilar atelectasis. ? Continue midodrine ? Continue albumin COVID-19, continue remdesivir ? Given altered mental status, possible steroid encephalopathy ? Hold Decadron NSTEMI ? Serial EKGs, serial troponins, telemetry monitoring, Fluid overload, elevated BNP, currently on 2 L, with liver cirrhosis, ? Will give 20 mg of IV push Lasix this afternoon Lower extremity wounds. Vancomycin added. Local skin care. Avoid pressure. May have some concomitant peripheral vascular disease but will hold off on investigation considering other illnesses currently. Other medical problems as outlined in his past medical history Allow natural currently Attestations 2 Medical Necessity Statement*: Patient requires hospitalization for acute encephalopathy, ascites, liver cirrhosis, Diagnoses Hepatic encephalopathy K76.82 Ascites R18.8 Rhabdomyolysis M62.82 COVID-19 U07.1 Acute encephalopathy G93.40 NSTEMI (non-ST elevated myocardial infarction) I21.4 Thrombocytopenia D69.6
[2023-10-18] MEDS: FUROsemide 10 mg/mL SDV 2mL 20 MG IVP (17:29)
--- NOTE | 2023-10-18 19:38 | PC.NURSE ---
Patient very agitated . Yelling. Removed his heart monitor. Patient urinated in the bed. Linens changed. Patient reconnected to monitor.
--- NOTE | 2023-10-18 21:30 | PC.NURSE ---
Patient less agitated, still confused. Refused to take medicines.
[2023-10-18 22:47] LABS: Glucose Point of Care 126 mg/dL (70-110)
[2023-10-19] VITALS (27 sets, daily range): BP systolic 104–159; BP diastolic 71–101; PULSE 81–109; RESP 14–25; TEMP 36.1–37.2; O2SAT 76–100
[2023-10-19] MEDS: meropenem 1,000 MG in sodium chloride 0.9% (plus) 50 ML 100 MG IV ×3 (02:08→17:09)
--- NOTE | 2023-10-19 03:08 | PC.NURSE ---
Patient more restless, yelling out. Words incompresensible. Went into toroom ans aked patient what was wrong. Patient stated clearly need a blanket . Obtained 2nd blanket for patient. Offered patient a drink of water. Patient stated no . Offered patient his lactulose. Patient shook his head. During the interaction patient did not open his eyes once. Within in minutesof leaving th room patient began yelling again. Unable to understand patient's words when he yells.
[2023-10-19 04:18] LABS: Basophils % 0.2 %; Hematocrit 36.3 % (37-53); Lymphocytes # 0.6 10^3/uL (0.8-4.8); Lymphocytes % 9.7 %; Mean Corpuscular HGB Conc 31.7 g/dL (30-55); Mean Corpuscular Hemoglobin 31.4 pg (27-33); Mean Corpuscular Volume 99.2 fl (82-101); Mean Platelet Volume 10.5 fL (7.4-10.4); Monocytes # 0.7 10^3/uL (0.2-0.9); Monocytes % 12.3 %; Neutrophils # 4.44 10^3/uL (1.8-7.7); Neutrophils % 76.9 %; Nucleated Red Blood Cells % 0 %; Platelet Count 109 10^3/cmm (157-399); Red Blood Count 3.66 10^6/uL (3.85-5.65); Red Cell Distribution Width 18.6 % (12.1-15.1); White Blood Count 5.77 10^3/uL (3.29-11.43)
[2023-10-19 04:33] LABS: Alanine Aminotransferase 37 U/L (0-41); Albumin Level 3.8 g/dL (3.5-5.2); Alkaline Phosphatase 124 U/L (40-130); Anion Gap 16.6 (5-19); Aspartate Amino Transferase 54 U/L (0-40); Blood Urea Nitrogen 23 mg/dL (8-23); Calcium 9.6 mg/dL (8.5-10.5); Carbon Dioxide 24 mmol/L (22-29); Chloride 101 mmol/L (98-107); Globulin 3.1 g/dL (1.3-4.6); Glomerular Filtration Rate 168.5 mL/min (90-130); Glucose 98 mg/dL (65-115); Magnesium 2.2 mg/dL (1.7-2.3); Osmolality Calculated 288 mOsm/kg (285-295); Phosphorus 4.2 mg/dL (2.5-4.5); Potassium 4.6 mmol/L (3.5-5.1); Sodium 137 mmol/L (136-145); Total Bilirubin 2.9 mg/dL (0.15-1.2); Total Protein 6.9 g/dL (6.6-8.7)
[2023-10-19 04:35] LABS: Ammonia 65 umol/L (16-60); Lactate (Lactic Acid level) 2.2 mmol/L (0.5-2.2)
[2023-10-19 04:42] LABS: Creatine Phosphokinase 55 U/L (39-308)
--- NOTE | 2023-10-19 05:42 | PC.NURSE ---
Patient still yelling. Only recognizable word is Gale . Went into room, asked patient what was wrong. He did not answer or open his eyes. Asked patient if he needed anything. He did not respond. Shortly after leaving patient room. Patient began yelling again.
--- NOTE | 2023-10-19 07:00 | XRR_ITS ---
PROCEDURE INFORMATION: Exam: XR Chest Exam date and time: 10/19/2023 8:34 AM Age: 62 years old Clinical indication: Shortness of breath; Additional info: SOB TECHNIQUE: Imaging protocol: Radiologic exam of the chest. Views: 1 view. COMPARISON: CR (CHEST, ) 10/15/2023 12:29 AM FINDINGS: Tubes, catheters and devices: There is a left subclavian central venous catheter which is appropriately positioned with the line tip in the lower SVC near the cavoatrial junction. Lungs: There is ill-defined ground-glass and coarse reticular opacity in both lower lungs. There is subpleural platelike opacity in the right lower lung. There is volume loss in the right hemithorax and rightward mediastinal shift. Pleural spaces: No pneumothorax. The left lateral costophrenic sulcus is blunted and the left hemidiaphragm is obscured. Heart/Mediastinum: The cardiac silhouette is markedly enlarged. Bones/joints: Bones are unremarkable. XR/XR chest 1V portable [id number] IMPRESSION: 1. Satisfactory position of left subclavian central line. 2. Opacity and volume loss in the right lower lung corresponds to pleuroparenchymal scarring and atelectasis visible on the recent abdomen CT. 3. Small left pleural effusion corresponds to findings on the recent abdomen CT. 4. Marked cardiac enlargement.
[2023-10-19] MEDS: remdesivir 100 MG in sodium chloride 0.9% (100 ml) 80 ML IV (08:18)
[2023-10-19] MEDS: albumin 25 G/100 ML BAG 60 G IV ×2 (08:21→15:38)
[2023-10-19] MEDS: multivitamin therapeutic Tablet 1 TAB PO (08:25)
[2023-10-19] MEDS: sucralfate 1 gm Tablet PO ×4 (08:25→20:58)
[2023-10-19] MEDS: folic acid 1 mg Tablet PO (08:25)
[2023-10-19] MEDS: midodrine 5 mg TABLET 10 MG PO ×3 (08:26→20:58)
[2023-10-19] MEDS: lactulose oral liq 20 gm/30 mL UDC 30 GM PO ×3 (08:26→20:58)
[2023-10-19 08:28] LABS: Glucose Point of Care 99 mg/dL (70-110)
--- NOTE | 2023-10-19 08:50 | PC.NURSE ---
Nurse attempted to give morning PO meds. Lactulose, midodrine, sucrulfate, xifaxin, folic acid, and a multivitamin. All mixed into a drink. Patient drank about half of the drink, then the next sip he spit out what was in his mouth and knocked cup form nurses hand spilling contents. Started yelling out for Alysa, his , and started yelling kill me . Nurse is unsure of how much of his morning meds patient actually ingested.
[2023-10-19 13:30] LABS: Glucose Point of Care 73 mg/dL (70-110)
--- NOTE | 2023-10-19 14:21 | P.PN_ITS ---
Subjective 2 Subjective: Patient was seen this morning, he does respond to his name, is not alert to person, to place, not to time, he does not follow commands at this time, afebrile overnight, normotensive, Vitals/I&O/Wt Last Vital Signs Temp 99 F 10/19/23 09:00 Pulse 99 10/19/23 09:15 Resp 17 10/19/23 09:00 BP 129/101 10/19/23 09:00 Pulse Ox 94 10/19/23 09:15 O2 Del Method Nasal Cannula 10/19/23 09:15 O2 Flow Rate 2 10/19/23 09:15 10/18/23 10/19/23 10/19/23 22:59 06:59 14:59 Intake Total 372 / 1502 100 / 1602 300 / 300 Output Total 200 / 600 Balance 172 / 902 100 / 1002 300 / 300 Weight last 48 hrs Weight 97.522 kg Physical Exam 2 Const: COMMON NORMALS: no acute distress EXAM LIMITATIONS: altered mental status ORIENTATION/CONSCIOUSNESS: Yes awake, Yes oriented to person and Yes confused; not oriented to place and not oriented to time Resp: COMMON NORMALS: normal respiratory effort, No retractions, No use of accessory muscles and clear to auscultation bilaterally AUSCULTATION: clear to auscultation bilaterally Cardio: COMMON NORMALS: regular rate, regular rhythm, S1 normal heart sound present and S2 normal heart sound present RATE: regular rate RHYTHM: r egular rhythm HEART SOUNDS: S1 normal heart sound present and S2 normal heart sound present GI: COMMON NORMALS: Normal to inspection, nondistended, normoactive bowel sounds present and non-tender Extremity: COMMON NORMALS: no pedal edema Neuro: SENSORIUM/ORIENTATION: Yes oriented to person, No oriented to place and No oriented to time Data 10/19/23 03:57 10/19/23 03:57 Micro: Microbiology 10/15/23 10:10 Gram Stain - Final Peritoneal Fluid Anaerobic Culture - Preliminary Body Fluid Culture - Final A&P Assessment and plan (1) Hepatic encephalopathy: (2) Ascites: (3) Rhabdomyolysis: (4) COVID-19: (5) Acute encephalopathy: (6) NSTEMI (non-ST elevated myocardial infarction): (7) Thrombocytopenia: Plan Acute encephalopathy -Etiology unclear, - could be from hepatic encephalopathy, hyperammonemia, ammonia level 65, continue lactulose examination -Could be from possible history of alcoholism? Start high-dose thiamine correction - this could be from COVID-19 -Follow blood cultures, ? Will consider MRI of the brain based on clinical progress ?will consider lumbar puncture based on clinical progress ? Broaden antibiotic coverage to vancomycin, meropenem Hepatic encephalopathy ?continue lactulose ? Continue rifaximin Ascites ?currently abdomen is distended, no significant guarding, no rebound, rigidity ? Status post paracentesis October 15 6500 cc removed -Concerns for possible SBP? ? Currently cultures are negative, ? Broaden antibiotic coverage to vancomycin, meropenem Liver cirrhosis -Albumin 3.5, INR 2.15, creatinine 0.7, bili 2.5, ?1. Cirrhosis with sequela of portal hypertension, including splenomegaly, extensive portosystemic collaterals including large gastric and esophageal varices, and large volume ascites. 2. Main portal vein is thrombosed with multiple venous collaterals in the macy hepatis, suggesting chronic thrombosis/cavernous transformation. Segment of the SMV is thrombosed. 3. Submucosal edema in the gastric antrum/pylorus, can be seen with gastritis or portal gastropathy. 4. Nonspecific lymphadenopathy may be related to portal hypertension. 5. Small left and trace right pleural effusions and right basilar atelectasis. ? Continue midodrine ? Continue albumin COVID-19, continue remdesivir ? Given altered mental status, possible steroid encephalopathy ? Hold Decadron NSTEMI ? Serial EKGs, serial troponins, telemetry monitoring, Fluid overload, elevated BNP, currently on 2 L, with liver cirrhosis, ? Will give 20 mg of IV push Lasix this afternoon Lower extremity wounds. Vancomycin added. Local skin care. Avoid pressure. May have some concomitant peripheral vascular disease but will hold off on investigation considering other illnesses currently. Other medical problems as outlined in his past medical history Allow natural currently Attestations 2 Medical Necessity Statement*: Patient requires hospitalization for persistent encephalopathy Diagnoses Hepatic encephalopathy K76.82 Ascites R18.8 Rhabdomyolysis M62.82 COVID-19 U07.1 Acute encephalopathy G93.40 NSTEMI (non-ST elevated myocardial infarction) I21.4 Thrombocytopenia D69.6
[2023-10-19] MEDS: FUROsemide 10 mg/mL SDV 4mL 40 MG IVP (15:38)
[2023-10-19 17:21] LABS: Glucose Point of Care 129 mg/dL (70-110)
--- NOTE | 2023-10-19 17:57 | PC.NURSE ---
Shift SUmmary: Uneventful shift. Patient has been confused and agitated throughout the day, frequently turning in bed getting wrapped up in linens, pulling of monitoring, and yelling out nonsensical things. PRN ativan was available, but was not given as he has been manageable with frequent rounding/repositioning, and he has not posed a danger to himself or others. 3 thick pasty bowel movements today. Unsure on urine output as he has urinated the bed twice and it could not be measured. Patient had to be straight cathed at 1800 due to urinary retention indicated by a bladder scan showing greater than 475 retained, possible distended bladder but hard to tell due to ascites and being uncooperative with physical exam.
[2023-10-19 20:40] LABS: Glucose Point of Care 114 mg/dL (70-110)
[2023-10-20] MEDS: meropenem 1,000 MG in sodium chloride 0.9% (plus) 50 ML 100 MG IV ×3 (02:21→17:32)
[2023-10-20] MEDS: lactulose oral liq 20 gm/30 mL UDC 30 GM PO ×3 (02:22→20:51)
[2023-10-20 03:09] VITALS: BP 136/82; PULSE 106; RESP 17; TEMP 36.7; O2SAT 95
[2023-10-20 04:03] LABS: Basophils % 0.5 %; Eosinophils # 0.1 10^3/uL (0.0-0.8); Eosinophils % 1.2 %; Hematocrit 39.1 % (37-53); Lymphocytes # 0.9 10^3/uL (0.8-4.8); Mean Corpuscular HGB Conc 31.2 g/dL (30-55); Mean Corpuscular Hemoglobin 31.2 pg (27-33); Mean Platelet Volume 10.2 fL (7.4-10.4); Monocytes # 1.2 10^3/uL (0.2-0.9); Monocytes % 13.6 %; Neutrophils # 6.27 10^3/uL (1.8-7.7); Neutrophils % 73.3 %; Nucleated Red Blood Cells % 0.2 %; Platelet Count 132 10^3/cmm (157-399); Red Blood Count 3.91 10^6/uL (3.85-5.65); Red Cell Distribution Width 19.2 % (12.1-15.1); White Blood Count 8.54 10^3/uL (3.29-11.43)
[2023-10-20 04:20] LABS: Alanine Aminotransferase 71 U/L (0-41); Albumin Level 3.9 g/dL (3.5-5.2); Alkaline Phosphatase 135 U/L (40-130); Aspartate Amino Transferase 159 U/L (0-40); Blood Urea Nitrogen 27 mg/dL (8-23); C Reactive Protein 51.1 mg/L (0.0-4.9); Calcium 9.2 mg/dL (8.5-10.5); Carbon Dioxide 24 mmol/L (22-29); Chloride 106 mmol/L (98-107); Glomerular Filtration Rate 168.5 mL/min (90-130); Glucose 90 mg/dL (65-115); Osmolality Calculated 299 mOsm/kg (285-295); Phosphorus 2.9 mg/dL (2.5-4.5); Sodium 142 mmol/L (136-145); Total Bilirubin 4.2 mg/dL (0.15-1.2); Total Protein 6.9 g/dL (6.6-8.7)
[2023-10-20 04:21] LABS: Anion Gap 16.2 (5-19); Potassium 4.2 mmol/L (3.5-5.1)
[2023-10-20 04:23] LABS: Creatine Phosphokinase 61 U/L (39-308)
[2023-10-20 04:35] LABS: Ammonia 66 umol/L (16-60)
[2023-10-20 06:30] LABS: Glucose Point of Care 89 mg/dL (70-110)
--- NOTE | 2023-10-20 07:07 | PC.NURSE ---
Patient yelling for his Che. Reminded patient that his Che is not here and that he is at the hospital. Patient continues to yell Eusebio name as though he does not here me telling him that she is not here.
[2023-10-20 07:22] VITALS: BP 128/84; PULSE 110; RESP 16; TEMP 36.8; O2SAT 96
[2023-10-20] MEDS: remdesivir 100 MG in sodium chloride 0.9% (100 ml) 80 ML IV (07:42)
--- NOTE | 2023-10-20 08:00 | PC.NURSE ---
Patient cleaned up this morning it was reported this was his sixth diarrhea bowel movement. Patient is incontinent. Patient refused to to keep his oxygen on. This nurse paula put it back on and in his nose and patient will yell and cuss at this nurse and take it right back out. Patient did score a 12 on his CWAI and was treated with Ativan.
[2023-10-20] MEDS: midodrine 5 mg TABLET 10 MG PO ×3 (09:00→20:51)
[2023-10-20] MEDS: TRAMadol 50 mg Tablet PO ×2 (09:00→20:51)
[2023-10-20] MEDS: pantoprazole DR 40 mg Tablet PO (09:01)
[2023-10-20] MEDS: sucralfate 1 gm Tablet PO ×3 (09:01→20:51)
[2023-10-20] MEDS: multivitamin therapeutic Tablet 1 TAB PO (09:01)
[2023-10-20] MEDS: folic acid 1 mg Tablet PO (09:01)
--- NOTE | 2023-10-20 09:20 | PC.NURSE ---
Patient is not able to follow commands enough to complete this scale.
[2023-10-20 11:35] LABS: Glucose Point of Care 66 mg/dL (70-110)
[2023-10-20 12:00] VITALS: BP 116/70; PULSE 112; RESP 18; TEMP 37; O2SAT 92
[2023-10-20] MEDS: dextrose 50% syringe 50 mL IVP (12:09)
--- NOTE | 2023-10-20 13:51 | P.PN_ITS ---
Subjective 2 Subjective: Patient was seen this morning he is alert to person, to place, not to time, he awakens up he can follow commands, but falls back asleep, but continues to have altered mental status, as he continues to shout out for Alysa, encephalopathic at times normotensive overnight, afebrile, on 3 L Vitals/I&O/Wt Last Vital Signs Temp 98.6 F 10/20/23 12:00 Pulse 112 H 10/20/23 12:00 Resp 18 10/20/23 12:00 BP 116/70 10/20/23 12:00 Pulse Ox 92 10/20/23 12:00 O2 Del Method Nasal Cannula 10/20/23 12:00 O2 Flow Rate 3 10/20/23 12:00 10/19/23 10/20/23 10/20/23 22:59 06:59 14:59 Intake Total 550 / 1050 50 / 1100 600 / 600 Balance 550 / 1050 50 / 1100 600 / 600 Weight last 48 hrs Weight 88.451 kg Physical Exam 2 Const: COMMON NORMALS: no acute distress EXAM LIMITATIONS: altered mental status ORIENTATION/CONSCIOUSNESS: Yes awake, Yes oriented to person, Yes oriented to place and Yes confused; not oriented to time Resp: COMMON NORMALS: normal respiratory effort, No retractions, No use of accessory muscles and clear to auscultation bilaterally AUSCULTATION: clear to auscultation bilaterally Cardio: COMMON NORMALS: regular rate, regular rhythm, S1 normal heart sound present and S2 normal heart sound present RATE: regular rate RHYTHM: r egular rhythm HEART SOUNDS: S1 normal heart sound present and S2 normal heart sound present GI: COMMON NORMALS: Normal to inspection, nondistended, normoactive bowel sounds present and non-tender Extremity: COMMON NORMALS: no pedal edema Neuro: SENSORIUM/ORIENTATION: Yes oriented to person, Yes oriented to place and No oriented to time Data 10/20/23 03:35 10/20/23 03:35 Micro: Microbiology 10/15/23 10:10 Gram Stain - Final Peritoneal Fluid Anaerobic Culture - Preliminary Body Fluid Culture - Final A&P Assessment and plan (1) Hepatic encephalopathy: (2) Ascites: (3) Rhabdomyolysis: (4) COVID-19: (5) Acute encephalopathy: (6) NSTEMI (non-ST elevated myocardial infarction): (7) Thrombocytopenia: Plan Acute encephalopathy -Etiology unclear, but likely multifactorial - could be from hepatic encephalopathy, hyperammonemia, ammonia level 65, continue lactulose examination -Could be from possible history of alcoholism? on high-dose thiamine correction - this could be from COVID-19 -Follow blood cultures, ? Will consider MRI of the brain based on clinical progress ?will consider lumbar puncture based on clinical progress ? Broaden antibiotic coverage to vancomycin, meropenem Hepatic encephalopathy ?continue lactulose ? Continue rifaximin Ascites ?currently abdomen is distended, no significant guarding, no rebound, rigidity ? Status post paracentesis October 15 6500 cc removed -Concerns for possible SBP? ? Currently cultures are negative, ? Broaden antibiotic coverage to vancomycin, meropenem Liver cirrhosis -Albumin 3.5, INR 2.15, creatinine 0.7, bili 2.5, ?1. Cirrhosis with sequela of portal hypertension, including splenomegaly, extensive portosystemic collaterals including large gastric and esophageal varices, and large volume ascites. 2. Main portal vein is thrombosed with multiple venous collaterals in the macy hepatis, suggesting chronic thrombosis/cavernous transformation. Segment of the SMV is thrombosed. 3. Submucosal edema in the gastric antrum/pylorus, can be seen with gastritis or portal gastropathy. 4. Nonspecific lymphadenopathy may be related to portal hypertension. 5. Small left and trace right pleural effusions and right basilar atelectasis. ? Continue midodrine ? Continue albumin COVID-19, continue remdesivir ? Given altered mental status, possible steroid encephalopathy ? Hold Decadron NSTEMI ? Serial EKGs, serial troponins, telemetry monitoring, Fluid overload, elevated BNP, currently on 2 L, with liver cirrhosis, ? Will give 20 mg of IV push Lasix this afternoon Lower extremity wounds. Vancomycin added. Local skin care. Avoid pressure. May have some concomitant peripheral vascular disease but will hold off on investigation considering other illnesses currently. Other medical problems as outlined in his past medical history Allow natural currently Attestations 2 Medical Necessity Statement*: Patient requires hospitalization for acute encephalopathy, requiring IV antibiotics, lactulose, Diagnoses Hepatic encephalopathy K76.82 Ascites R18.8 Rhabdomyolysis M62.82 COVID-19 U07.1 Acute encephalopathy G93.40 NSTEMI (non-ST elevated myocardial infarction) I21.4 Thrombocytopenia D69.6
--- NOTE | 2023-10-20 14:12 | PC.NURSE ---
Patient refused to leave telemetry box on. Doctor aware
[2023-10-20] MEDS: FUROsemide 10 mg/mL SDV 4mL 40 MG IVP (14:27)
[2023-10-20 15:11] LABS: Glucose Point of Care 144 mg/dL (70-110)
[2023-10-20 16:00] VITALS: BP 90/50; PULSE 100; RESP 16; TEMP 37.1; O2SAT 97
[2023-10-20 17:03] LABS: Glucose Point of Care 114 mg/dL (70-110)
[2023-10-20 20:00] VITALS: BP 113/68; PULSE 108; RESP 20; TEMP 36.9; O2SAT 97
[2023-10-20 21:49] LABS: Glucose Point of Care 92 mg/dL (70-110)
[2023-10-21] VITALS (11 sets, daily range): BP systolic 56–139; BP diastolic 37–87; PULSE 52–155; RESP 10–20; TEMP 36.4–36.9; O2SAT 90–100; BMI 25.0
[2023-10-21] MEDS: meropenem 1,000 MG in sodium chloride 0.9% (plus) 50 ML 100 MG IV ×3 (00:59→22:10)
[2023-10-21] MEDS: lactulose oral liq 20 gm/30 mL UDC 30 GM PO (03:11)
[2023-10-21] MEDS: sucralfate 1 gm Tablet PO ×2 (03:11→08:09)
--- NOTE | 2023-10-21 03:49 | PC.NURSE ---
large amount of urine, pt incontinent
--- NOTE | 2023-10-21 03:50 | PC.NURSE ---
@2300 pt had large amount of urine, pt incontinent, soiled through depend, pad and bottom sheet, personal hygiene performed
[2023-10-21 06:58] LABS: Basophils % 0.5 %; Eosinophils # 0.1 10^3/uL (0.0-0.8); Eosinophils % 2.1 %; Hematocrit 43.1 % (37-53); Lymphocytes # 0.7 10^3/uL (0.8-4.8); Lymphocytes % 10.8 %; Mean Corpuscular HGB Conc 31.3 g/dL (30-55); Mean Corpuscular Hemoglobin 31.7 pg (27-33); Mean Corpuscular Volume 101.2 fl (82-101); Mean Platelet Volume 11.3 fL (7.4-10.4); Monocytes # 0.5 10^3/uL (0.2-0.9); Monocytes % 7.3 %; Neutrophils # 4.95 10^3/uL (1.8-7.7); Neutrophils % 78.7 %; Nucleated Red Blood Cells % 0.3 %; Platelet Count 70 10^3/cmm (157-399); Red Blood Count 4.26 10^6/uL (3.85-5.65); Red Cell Distribution Width 19.1 % (12.1-15.1); White Blood Count 6.29 10^3/uL (3.29-11.43)
[2023-10-21 07:21] LABS: Alanine Aminotransferase 135 U/L (0-41); Albumin Level 3.1 g/dL (3.5-5.2); Alkaline Phosphatase 129 U/L (40-130); Blood Urea Nitrogen 18 mg/dL (8-23); C Reactive Protein 79.1 mg/L (0.0-4.9); Carbon Dioxide 26 mmol/L (22-29); Chloride 106 mmol/L (98-107); Globulin 2.9 g/dL (1.3-4.6); Glomerular Filtration Rate 168.5 mL/min (90-130); Glucose 90 mg/dL (65-115); Magnesium 1.6 mg/dL (1.7-2.3); Osmolality Calculated 297 mOsm/kg (285-295); Phosphorus 2.6 mg/dL (2.5-4.5); Sodium 143 mmol/L (136-145); Total Bilirubin 4.8 mg/dL (0.15-1.2)
[2023-10-21 07:23] LABS: Lactate (Lactic Acid level) 2.2 mmol/L (0.5-2.2)
[2023-10-21 07:24] LABS: Anion Gap 14.5 (5-19); Aspartate Amino Transferase 335 U/L (0-40); Potassium 3.5 mmol/L (3.5-5.1)
[2023-10-21 07:26] LABS: Ammonia 49 umol/L (16-60)
[2023-10-21 07:36] LABS: Creatine Phosphokinase 61 U/L (39-308)
[2023-10-21] MEDS: pantoprazole DR 40 mg Tablet PO (08:09)
[2023-10-21] MEDS: multivitamin therapeutic Tablet 1 TAB PO (08:09)
[2023-10-21] MEDS: midodrine 5 mg TABLET 10 MG PO ×2 (08:09→15:43)
[2023-10-21] MEDS: TRAMadol 50 mg Tablet PO (08:10)
[2023-10-21] MEDS: folic acid 1 mg Tablet PO (08:10)
[2023-10-21 08:22] LABS: Glucose Point of Care 71 mg/dL (70-110)
[2023-10-21 09:09] LABS: Gamma Glutamyl Transferase 27 U/L (8-61); Lipase 18 U/L (13-60)
[2023-10-21] MEDS: LORazepam 2 mg/mL INJ 10 mL MDV 1 MG IVP ×2 (10:39→18:24)
[2023-10-21] MEDS: FUROsemide 10 mg/mL SDV 4mL 40 MG IVP (10:40)
[2023-10-21] MEDS: lidocaine 1% 5 ML in potassium chloride premix 100 ML 52.5 ML IV (10:44)
[2023-10-21 10:59] LABS: Glucose Point of Care 117 mg/dL (70-110)
[2023-10-21] MEDS: haloperidol inj 5 mg/mL INJ 1 mL 1 MG IM ×3 (13:06→15:58)
--- NOTE | 2023-10-21 15:15 | P.PN_ITS ---
Subjective 2 Subjective: Patient was seen this morning he is alert to person, to place, not to time he becomes very agitated, according to nursing staff's he became very agitated during the night, swelling at nursing staff, this morning he is pulling on his left-sided chest port, he is very orientable, but becomes agitated easily, is moaning out for his who is at bedside, I spoke to Alysa Steve, she tells me that back in September Blair was driving her car, he was ambulatory, he could feed himself he could take care of himself, she tells me that he intermittently takes his medications, he got admitted at [facility] for acute liver failure, hepatic encephalopathy he eventually got out of the hospital, but he would have at home intermittent episodes of confusion, generalized weakness, poor appetite, but she tells me that currently his mentation is completely altered from what he was at after he left [facility], she tells me that it is difficult for her to manage with him at home, we discussed his advancing liver cirrhosis, I discussed continue medical interventions versus hospice, she tells me that she would consider hospice but she wants this do further interventions about his mentation, she tells me that currently his mentation is completely different from what it normally is, I advised her that his ammonia levels are getting better, you are treating him for broad-spectrum with antibiotics, but he continues to have episodes of agitation, which could be persistent hepatic encephalopathy could be prolonged hospitalization, she is adamant he does not drink any alcohol, we discussed doing further intervention such as MRI of the brain, lumbar puncture, she is agreeable, will continue to monitor his mentation, however I advised that possibly this might be grant now, this might be his functional status, but I will do my best I will continue broad-spectrum antibiotic therapy, will continue her interventions, ordered MRI of the brain will consider lumbar puncture based on his clinical progress, however I am worried about his agitation is confusion, I can have him agitated pulling out his chest port, nor can I have him hurting nursing staff are hurting himself I will do my best to try to control his agitation but on the other hand I do not want him completely sedated we will have to find that balance here in the hospital, she is agreeable Vitals/I&O/Wt Last Vital Signs Temp 98.2 F 10/21/23 12:00 Pulse 107 H 10/21/23 12:00 Resp 20 H 10/21/23 12:00 BP 90/50 10/21/23 12:00 Pulse Ox 90 10/21/23 12:00 O2 Del Method Nasal Cannula 10/21/23 08:00 O2 Flow Rate 4 10/21/23 04:00 10/21/23 10/21/23 10/21/23 06:59 14:59 22:59 Intake Total 490 / 1140 50 / 50 Balance 490 / 1140 50 / 50 Weight last 48 hrs Weight 85.956 kg Weight 88.451 kg Physical Exam 2 Const: COMMON NORMALS: no acute distress EXAM LIMITATIONS: altered mental status ORIENTATION/CONSCIOUSNESS: Yes awake, Yes oriented to person, Yes oriented to time and Yes confused; not oriented to place Resp: COMMON NORMALS: normal respiratory effort, No retractions, No use of accessory muscles and clear to auscultation bilaterally AUSCULTATION: clear to auscultation bilaterally Cardio: COMMON NORMALS: regular rate, regular rhythm, S1 normal heart sound present and S2 normal heart sound present RATE: regular rate RHYTHM: r egular rhythm HEART SOUNDS: S1 normal heart sound present and S2 normal heart sound present GI: COMMON NORMALS: Normal to inspection, nondistended, normoactive bowel sounds present and non-tender Extremity: COMMON NORMALS: no pedal edema Neuro: SENSORIUM/ORIENTATION: Yes oriented to person, No oriented to place and Yes oriented to time OTHER: He can follow some commands such as squeezing my fingers, wiggling his toes, but goes back to becoming very agitated and confused Data 10/21/23 06:40 10/21/23 06:40 Micro: Microbiology 10/15/23 10:10 Gram Stain - Final Peritoneal Fluid Anaerobic Culture - Preliminary Body Fluid Culture - Final 10/14/23 20:10 Blood Culture - Final Blood 10/14/23 19:50 Blood Culture - Final Blood A&P Assessment and plan (1) Hepatic encephalopathy: (2) Ascites: (3) Rhabdomyolysis: (4) COVID-19: (5) Acute encephalopathy: (6) NSTEMI (non-ST elevated myocardial infarction): (7) Thrombocytopenia: Plan Acute encephalopathy -Etiology unclear, but likely multifactorial - could be from hepatic encephalopathy, hyperammonemia, ammonia level 44 continue lactulose examination -Could be from possible history of alcoholism? on high-dose thiamine correction - this could be from COVID-19 -Follow blood cultures, ? MRI of the brain ordered ? Will order lumbar puncture to be done hopefully tomorrow ? Broaden antibiotic coverage to vancomycin, meropenem Hepatic encephalopathy ?continue lactulose ? Continue rifaximin Ascites ?currently abdomen is distended, no significant guarding, no rebound, rigidity ? Status post paracentesis October 15 6500 cc removed -Concerns for possible SBP? ? Currently cultures are negative, ? Broaden antibiotic coverage to vancomycin, meropenem Liver cirrhosis -T. bili 4.8, AST 335 ALT 135, bili elevated, albumin 3.1 total protein 6 ? Does have worsening liver numbers, will do liver ultrasound ?1. Cirrhosis with sequela of portal hypertension, including splenomegaly, extensive portosystemic collaterals including large gastric and esophageal varices, and large volume ascites. 2. Main portal vein is thrombosed with multiple venous collaterals in the macy hepatis, suggesting chronic thrombosis/cavernous transformation. Segment of the SMV is thrombosed. 3. Submucosal edema in the gastric antrum/pylorus, can be seen with gastritis or portal gastropathy. 4. Nonspecific lymphadenopathy may be related to portal hypertension. 5. Small left and trace right pleural effusions and right basilar atelectasis. ? Continue midodrine ? Continue albumin COVID-19, Completed remdesivir ? Given altered mental status, possible steroid encephalopathy ? Hold Decadron NSTEMI ? Serial EKGs, serial troponins, telemetry monitoring, Fluid overload, elevated BNP, currently on 2 L, with liver cirrhosis, ? 1 dose of Lasix today Lower extremity wounds. Vancomycin added. Local skin care. Avoid pressure. May have some concomitant peripheral vascular disease but will hold off on investigation considering other illnesses currently. Other medical problems as outlined in his past medical history Allow natural currently Attestations 2 Medical Necessity Statement*: Patient requires hospitalization for liver cirrhosis, acute encephalopathy Diagnoses Hepatic encephalopathy K76.82 Ascites R18.8 Rhabdomyolysis M62.82 COVID-19 U07.1 Acute encephalopathy G93.40 NSTEMI (non-ST elevated myocardial infarction) I21.4 Thrombocytopenia D69.6
[2023-10-21] MEDS: magnesium sulfate premix 2 GM/50 ML PIGGYBACK IV (15:40)
--- NOTE | 2023-10-21 16:01 | ECG_ITS ---
[facility] Test Date: 2023-10-21 Pat Name: Naldo Steve Department: Room: 262 Gender: Male Supervisor Garage: : 1960 Requested By: Solitario Ortiz Order Number: [id number] Mya MD: Odalis Neri M.D. Measurements Intervals [place] Rate: 175 P: 0 WA: 0 QRS: 49 QRSD: 110 T: 0 QT: 265 QTc: 453 Interpretive Statements ATRIAL FIBRILLATION WITH RAPID VENTRICULAR RESPONSE NONSPECIFIC ST & T-WAVE ABNORMALITY CRITICAL TEST RESULT Compared to ECG 10/18/2023 08:52:37 T-wave abnormality now present Sinus rhythm no longer present Sinus arrhythmia no longer present Electronically Signed On 10-21-2023 21:50:18 GEAR CUTTING MACHINE SET UP OPERATOR by Odalis Neri M.D. [id number]
[2023-10-21] MEDS: amiodarone 150 MG/100 ML PREMIX 400 MG IV (16:27)
[2023-10-21] MEDS: haloperidol inj 5 mg/mL INJ 1 mL 2 MG IM (16:53)
[2023-10-21] MEDS: amiodarone 50 mg/mL SDV 3 mL 150 MG IVP (16:57)
--- NOTE | 2023-10-21 17:17 | PM.CCNAC ---
Critical Care Event Note The high probability of a clinically significant, sudden or life threatening deterioration of the patient's [] system(s) required my full and direct attention, intervention and personal management. The critical care time is as shown. This time is in addition to time spent performing any reported procedures but includes the following: [x] Data and vital sign review and interpretation [x] Patient assessment, examination and intervention [x] Documentation [x] Medication orders and management Critical Care Time Code activated: No Critical Care Time (min): 35 Additional information about critical care time: -patient was seen this evening Found to have a heart rate in the 160s, A-fib with RVR on EKG pressures are soft 90s over 60s, ? Patient is alert to person, not to place, does have keeps yelling out, he is agitated, pushing me away, swinging at nursing staff, ? She was given 2 mg IV push Ativan, 2 mg of Haldol is bit more calm, ? For the A-fib with RVR was given 150 of amiodarone, given a liter bolus, ? Heart rates down to the 130s, given another 150 of amiodarone, ? Is a bit more calm, he is also in mild respiratory failure, likely secondary to acute flash pulm edema from A-fib with RVR, ? He is on oxy mask, at times rips his oxy mask off, ? We will continue oxygen, will obtain ABG, ? Continue amiodarone drip, ? Moved down to ICU, start Precedex drip, knee reexamined in ICU, he is bit more calm, on amiodarone drip going at 1, he is on the OxyMask, obtain ABG, potentially placed on BiPAP, chest x-ray Coding Level of Care Code Acute Code for Chg Fwd
--- NOTE | 2023-10-21 17:19 | XRR_ITS ---
PROCEDURE INFORMATION: Exam: XR Chest Exam date and time: 10/21/2023 5:33 PM Age: 62 years old Clinical indication: Shortness of breath; Additional info: SOB TECHNIQUE: Imaging protocol: Radiologic exam of the chest. Views: 1 view. COMPARISON: CR (CHEST, ) 10/19/2023 8:34 AM FINDINGS: Tubes, catheters and devices: Left IJ port infusion catheter remains in place. Lungs: Interval mild decrease in pulmonary expansion. Interval increase in pulmonary vascular congestion. Pleural spaces: No pleural effusion or pneumothorax. Heart/Mediastinum: Increased cardiac silhouette again noted. Diaphragm: Minimal right CP angle blunting without discrete effusion. Left CP angle is clear. Bones/joints: No significant pathology. XR/XR chest 1V portable [id number] IMPRESSION: Interval increase in pulmonary vascular congestion consistent with congestive failure and/or fluid overload. Findings accentuated by incomplete pulmonary expansion.
[2023-10-21] MEDS: dexmedeTOMIDine 0.9 % NaCL 400 MCG/100 ML PREMIX IV (17:24)
[2023-10-21 17:30] LABS: ABG PCO2 52.3 mmHg (35-45); Alveolar-Arterial Oxygen Gradi 0.5 mmHg (5-10); Arterial Blood Gas Hematocrit 40.6 % (42-52); Base Excess ABG -1.6 mmol/L (-2.0-2.0); Blood Gas Allen Test Pos; Blood Gas Operator Identificat CAK; Blood Gas Sample Site Brachial, left; Blood Gas Sample Type Arterial; Carboxyhemoglobin 1.5 %THgb (0.4-20.1); HCO3 ABG 25.5 mmol/L (22-26); HGB O2 Sat 92.8 % (95-100); Ionized Calcium Level - ABG 1.1 mmol/L (1.1-1.4); Methemoglobin 0.2 % (0.4-1.5); Oxygen Device OXY MASK; Oxygen Saturation ABG 94.4; PO2 ABG 82.5 mmHg (80.0-100.0); Potassium Level - ABG 3.7 mmol/L (3.5-5.0); Total Hemoglobin 13.2 g/dL (14-18)
[2023-10-21] MEDS: digoxin 250 mcg/ml INJ 2 mL IVP (18:06)
--- NOTE | 2023-10-21 18:06 | ECG_ITS ---
[facility] Test Date: 2023-10-21 Pat Name: Naldo Steve Department: Room: [facility] Gender: Male Sewer Digger: : 1960 Requested By: Solitario Ortiz Order Number: [id number] Mya MD: Odalis Neri M.D. Measurements Intervals [place] Rate: 163 P: 0 WV: 0 QRS: 23 QRSD: 113 T: 72 QT: 309 QTc: 510 Interpretive Statements ATRIAL FIBRILLATION WITH RAPID VENTRICULAR RESPONSE LOW QRS VOLTAGE IN EXTREMITY LEADS [QRS DEFLECTION < 0.5 mV IN LIMB LEADS] NONSPECIFIC ST & T-WAVE ABNORMALITY ABNORMAL RHYTHM ECG WARNING: DATA QUALITY MAY AFFECT INTERPRETATION Compared to ECG 10/21/2023 16:01:12 Low QRS voltage now present Intraventricular conduction delay now present T-wave abnormality still present Baseline artifacts need to repeat Electronically Signed On 10-21-2023 21:35:34 SEAFOOD FISHERMAN by Odalis Neri M.D. [id number]
[2023-10-21 18:39] LABS: Troponin(5th) Baseline 277 ng/L (0-15)
--- NOTE | 2023-10-21 18:39 | ANES.PROC ---
Anesthesia Procedures Procedure/Date: 10/21/23 Central Venous Insert: Central Venous Line: LIJ Time Out Performed: Yes Consent: requested by attending/covering physician and risks and benefits reviewed (Discussed with ) Central Line: New Anesthesia monitors: pulse oximetry, EKG, BP cuff and oxygen Vein cannulated: left internal jugular Post procedure: Obtain Chest X-Ray Additional Comments: Sterile prep/drape/gown/glove, seldinger tech. Patient very uncooperative (sedated), would only present left side, nursing staff holding patient. Previous port in Left subclavian likely made passage of wire difficult, accessed LIJ easily but wire would not thread easily past 20cm. Procedure aborted. CXR pending.
[2023-10-21 20:34] LABS: Troponin 5 2HR 323.6 ng/L (0-15); Troponin 5 2HR Delta 46.6 ABS# (0-10)
[2023-10-21 21:28] LABS: Glucose Point of Care 65 mg/dL (70-110)
--- NOTE | 2023-10-21 22:02 | XRR_ITS ---
PROCEDURE INFORMATION: Exam: XR Chest Exam date and time: 10/21/2023 10:10 PM Age: 62 years old Clinical indication: Device placement; Patient HX: RT side picc line; Additional info: Picc placement TECHNIQUE: Imaging protocol: Radiologic exam of the chest. Views: 1 view. COMPARISON: CR (CHEST, ) 10/21/2023 5:33 PM FINDINGS: Tubes, catheters and devices: There has been interval placement of a right-sided PICC line with its tip in the right atrium. Left subclavian central venous line in stable position. Lungs: Diffuse severe pulmonary edema. Pleural spaces: Unremarkable. No pleural effusion. No pneumothorax. Heart/Mediastinum: Stable cardiomegaly. Bones/joints: Unremarkable. XR/XR chest 1V portable [id number] IMPRESSION: Right-sided PICC line in appropriate position. Otherwise stable chest x-ray with cardiomegaly and congestive failure.
[2023-10-21] MEDS: dextrose 50% syringe 50 mL 25 ML IVP (22:11)
[2023-10-21] MEDS: dextrose 5 % 500 ML 50 ML IV (22:11)
[2023-10-21] MEDS: norepinephrine 4 MG/250 ML BAG 7.5 MG IV (22:11)
[2023-10-21 22:37] LABS: Glucose Point of Care 85 mg/dL (70-110)
[2023-10-21] MEDS: dexmedeTOMIDine 0.9 % NaCL 400 MCG/100 ML PREMIX 15.04 MCG IV (22:39)
--- NOTE | 2023-10-21 23:52 | PC.NURSE ---
Addendum entered by Svetlana Hernandez RN 10/21/23 23:58: Note, patient has chest port not currently accessed. Per bedside nurse, patient's chest port unable to be accessed and shows signs of possible infection, which is why they ordered PICC. Original Note: PICC Insertion Consulted by house charge for PICC placement for vasopressors and IV abx and poor venous access. Upon arrival to room, patient unable to give consent. Discussed procedure with patient's spouse at bedside, provided education, and obtained written consent. US assessment RUE found Right Basilic vein best target for cannulation due to size and lack of evidence of thrombus or stenosis. Using US guidance, MST and sterile technique, accessed vein x1 stick. Advanced device without resistance. Obtained blood return and flushed easily in all lumens. Device secured. Obtained chest x-ray to verify placement. Visualized PICC tip in appropriate location; pending radiologist review. EBL <30ml. Patient tolerated as expected. Handed off to primary nurse.
[2023-10-22] VITALS (16 sets, daily range): BP systolic 88–109; BP diastolic 53–71; PULSE 47–86; RESP 6–17; TEMP 36.4–36.8; O2SAT 94–100
[2023-10-22 00:01] LABS: Troponin 5 6HR 420.8 ng/L (0-15); Troponin 5 6HR Delta 143.8 ng/L (0-12)
[2023-10-22] MEDS: dexmedeTOMIDine 0.9 % NaCL 400 MCG/100 ML PREMIX 17.19 MCG IV (03:02)
[2023-10-22 04:02] LABS: Glucose Point of Care 97 mg/dL (70-110)
[2023-10-22] MEDS: meropenem 1,000 MG in sodium chloride 0.9% (plus) 50 ML 100 MG IV ×2 (04:43→13:20)
[2023-10-22 04:46] LABS: Basophils % 0.3 %; Eosinophils # 0.1 10^3/uL (0.0-0.8); Eosinophils % 1.1 %; Hematocrit 40.6 % (37-53); Lymphocytes # 0.7 10^3/uL (0.8-4.8); Lymphocytes % 10.5 %; Mean Corpuscular Hemoglobin 31.4 pg (27-33); Mean Corpuscular Volume 101.2 fl (82-101); Mean Platelet Volume 10.6 fL (7.4-10.4); Monocytes # 0.5 10^3/uL (0.2-0.9); Monocytes % 7.7 %; Neutrophils # 5.26 10^3/uL (1.8-7.7); Nucleated Red Blood Cells % 0 %; Platelet Count 53 10^3/cmm (157-399); Red Blood Count 4.01 10^6/uL (3.85-5.65); Red Cell Distribution Width 19.1 % (12.1-15.1); White Blood Count 6.65 10^3/uL (3.29-11.43)
[2023-10-22 05:08] LABS: Ammonia 30 umol/L (16-60)
[2023-10-22 05:09] LABS: Alanine Aminotransferase 143 U/L (0-41); Albumin Level 3.2 g/dL (3.5-5.2); Alkaline Phosphatase 152 U/L (40-130); Anion Gap 17.1 (5-19); Aspartate Amino Transferase 316 U/L (0-40); Blood Urea Nitrogen 28 mg/dL (8-23); C Reactive Protein 73.6 mg/L (0.0-4.9); Calcium 8.7 mg/dL (8.5-10.5); Carbon Dioxide 27 mmol/L (22-29); Chloride 104 mmol/L (98-107); Globulin 2.9 g/dL (1.3-4.6); Glomerular Filtration Rate 47.4 mL/min (90-130); Glucose 68 mg/dL (65-115); Magnesium 1.7 mg/dL (1.7-2.3); Osmolality Calculated 302 mOsm/kg (285-295); Phosphorus 4.6 mg/dL (2.5-4.5); Potassium 4.1 mmol/L (3.5-5.1); Sodium 144 mmol/L (136-145); Total Protein 6.1 g/dL (6.6-8.7)
[2023-10-22 05:17] LABS: Lactate (Lactic Acid level) 5.7 mmol/L (0.5-2.2); Total Bilirubin 7.6 mg/dL (0.15-1.2)
[2023-10-22 05:18] LABS: ABG PCO2 49.3 mmHg (35-45); ABG PH Result 7.34 (7.35-7.45); Arterial Blood Gas Hematocrit 37.5 % (42-52); Base Excess ABG 0.5 mmol/L (-2.0-2.0); Blood Gas Allen Test Pos; Blood Gas Sample Site Radial, left; Blood Gas Sample Type Arterial; HCO3 ABG 26.8 mmol/L (22-26); Oxygen Device OXY MASK; PO2 FiO2 Ratio Arterial Blood 0
[2023-10-22 05:20] LABS: Procalcitonin 0.56 ng/mL (0-0.5)
[2023-10-22 05:33] LABS: Creatine Phosphokinase 131 U/L (39-308)
[2023-10-22 05:57] LABS: INR 6.16 (0.8-1.2)
[2023-10-22 06:30] LABS: NT Pro B Type Natriuretic Pept > 70000 pg/mL (0-125)
--- NOTE | 2023-10-22 07:00 | XR_ITS ---
WS: [id number] Portable AP semiupright chest, 10/22/2023 Clinical Data: sob Comparison: Portable chest, 10/21/2023 Findings: The right PICC line and left internal jugular venous catheter remain in the same position. The pulmonary vascularity remains increased. There may be small bilateral effusions. The heart is enl arged. Monitor leads are on the chest wall. Impression: No change from yesterday's portable chest.
--- NOTE | 2023-10-22 07:58 | USCV_ITS ---
Naldo Steve Age: 62 Gender: M : 1960 Exam Date: 10/22/2023 08:30 Ordering Phys: Solitario Ortiz MD Technologist: Kuldip Watkins Exam Location: [facility] – [place] Indication: isi card nstemi BP: 99 / 64 HR: 41 Rhythm: Sinus Technical Quality: Adequate MEASUREMENTS (Male / Female) Normal Values 2D ECHO LV Diastolic Diameter PLAX 6.1 cm 4.2 - 5.9 / 3.9 - 5.3 cm LV Systolic Diameter PLAX 5.5 cm IVS Diastolic Thickness 1.1 cm 0.6 - 1.0 / 0.6 - 0.9 cm IVS Systolic Thickness 1.0 cm LVPW Diastolic Thickness 1.6 cm 0.6 - 1.0 / 0.6 - 0.9 cm LVPW Systolic Thickness 1.3 cm LVOT Diameter 2.0 cm LV Ejection Fraction 2D Teich 20.7 % LV Ejection Fraction MOD 2C 23.2 % LV Ejection Fraction 2C AL 21.3 % LA Diameter 4.4 cm M-MODE Aortic Annulus Diameter 3.5 cm LA Ao Ratio MM 1.2 MV E Point Septal Separation 3.5 cm DOPPLER AV Peak Velocity 140.0 cm/s LVOT Peak Velocity 60.0 cm/s AV Area Cont Eq vti 1.3 cm squared AV Area Cont Eq pk 1.4 cm squared MV E' Velocity 6.0 cm/s TR Peak Velocity 311.3 cm/s TR Peak Gradient 38.8 mmHg TV Peak E Velocity 87.0 cm/s Right Atrial Pressure 3.0 mmHg Pulmonary Artery Systolic Pressu 41.8 mmHg RV Acceleration Time 0.1 s FINDINGS Left Ventricle Severe diffuse hypokinesia of the left ventricle with an ejection fraction of around 15%. Moderately dilated LV cavity Right Ventricle The right ventricle is normal in size and function. Right Atrium Mildly dilated Left Atrium Mildly increased left atrial size. Mitral Valve Thickened mitral valve. Moderate-severe eccentric mitral valve regurgitation. The the recurrent jet is directed posteriorly and appears to encircle of the left atrium the left atrium. Aortic Valve Minimally thickened aortic valve Tricuspid Valve Moderate tricuspid valve regurgitation. Mild pulmonary hypertension with an estimated pulmonary artery peak systolic pressure of 42 mmHg Pulmonic Valve Not visualized well Pericardium Normal pericardium without effusion. Aorta Normal ascending aorta dimension. IVC Inferior vena cava not visualized. CONCLUSIONS Severe diffuse hypokinesia of the left ventricle with an ejection fraction of around 15%. Moderately dilated LV cavity. Mild biatrial enlargementThickened mitral valve. Moderate-severe eccentric mitral valve regurgitation. The the recurrent jet is directed posteriorly and appears to encircle of the left atrium the left atrium. Moderate tricuspid valve regurgitation. Mild pulmonary hypertension with an estimated pulmonary artery peak systolic pressure of 42 mmHg. Minimally thickened aortic valve. There is no pericardial effusion. There are no intracardiac masses. No similar previous studies are available for comparison Dr Odalis Neri MD [facility] (Electronically Signed) Final Date: 22 October 2023 09:44 S
[2023-10-22 08:06] LABS: Glucose Point of Care 74 mg/dL (70-110)
--- NOTE | 2023-10-22 08:42 | USR_ITS ---
PROCEDURE INFORMATION: Exam: US Abdomen, Limited; Right Upper Quadrant Exam date and time: 10/22/2023 6:24 AM Age: 62 years old Clinical indication: Abdominal pain; Generalized; Additional info: Liver, galbladder, PT ate at 845am, to be kept npo will be done this afternoon-kb TECHNIQUE: Imaging protocol: Real time ultrasound of the abdomen with image documentation. Limited exam focused on the right upper quadrant. COMPARISON: US paracentesis abd w [id number] 10/15/2023 10:05 AM FINDINGS: Liver: Visualized portions of the liver appears small, lobular, with coarse echotexture. Liver measured at 11.6 cm length. Gallbladder: Gallbladder appears small, perhaps contracted, with evidence of hypoechoic gallbladder wall thickening, nonspecific, possibly related to ascites, for example, though inflammation or other process not completely excluded. Biliary ducts: Common duct not well visualized/demonstrated, measured at about 2 mm across. Pancreas: Pancreas not visualized/demonstrated. Right kidney: Right kidney measured at 12.4 cm length. No dilated renal collecting system demonstrated of visualized portions right kidney. Bowel: Merchandising Assistant indicates very difficult study due to patient unable to move or hold breath and bowel gas. Aorta: Abdominal aorta not visualized/demonstrated. Inferior vena cava: Visualized portion IVC appears grossly unremarkable. Portal venous: Merchandising Assistant indicates very minimal flow demonstrated of main portal vein. Intraperitoneal space: Ascites demonstrated in 4 quadrants of abdomen. US/US abdomen limited [id number] IMPRESSION: 1. Ascites. 2. Liver appears small, nodular, with coarse echotexture compatible with cirrhosis. 3. Very minimal portal venous flow demonstrated. 4. Gallbladder appears small, perhaps contracted, with evidence of hypoechoic gallbladder wall thickening, nonspecific, possibly related to ascites, for example, though inflammation or other process not completely excluded.
[2023-10-22] MEDS: albumin 25 G/100 ML BAG 60 G IV (09:22)
[2023-10-22] MEDS: dextrose 50% syringe 50 mL IVP (09:23)
[2023-10-22 10:24] LABS: Glucose Point of Care 113 mg/dL (70-110)
[2023-10-22 11:11] LABS: Glucose Point of Care 123 mg/dL (70-110)
[2023-10-22 13:27] LABS: Glucose Point of Care 99 mg/dL (70-110)
--- NOTE | 2023-10-22 15:34 | P.PN_ITS ---
Subjective 2 Subjective: ? Patient was examined multiple times throughout the morning, and into the afternoon time with a family meeting with patient's at bedside, ? Early in the morning he was seen, he is on 2 of Levophed, in shock, blood pressures are soft 90s over 50s, sinus bradycardia, ? He does not awaken to sternal rub, ? He appears diffusely jaundiced, scleral icterus, abdominal distention,, ? Currently on 10 L oxymask, ? Currently he is in acute hypoxic respiratory failure, likely component of fluid overload, possible aspiration pneumonia, he is already on broad-spectrum antibiotic therapy, currently difficult to diurese, BNP is over 70,000, significant fluid overload, with elevated troponins, EF of 15%, with his soft blood pressures, renal failure, chronic send, extent?some degree of patient's hypoxic respiratory failure is likely hepatopulmonary syndrome, from severe liver failure ?currently on pressors from shock from respiratory failure, liver failure, acute renal failure, ? Patient is in acute renal failure, likely secondary to shock, likely hepatorenal syndrome, ? Patient's liver markers have increased, has markers of acute on chronic liver failure acute liver failure markers his INR of 6, bili of 7.6, lactic 5.7 creatinine 1.5, ? Patient has acute encephalopathy, does not awaken to sternal rub, GCS is 5, he is DNR/DNI, ? Patient had also has NSTEMI, currently, his EF is down to 15%, cannot anticoagulate given INR of 6, he also has severe liver cirrhosis, with liver cirrhosis portal hypertension, concerns for esophageal varices, and large gastric varices, seen on CT scan, cannot put on antiplatelet therapy due to esophageal gastric varices, thrombocytopenia, ? His Pro-Francisco and CRP are elevated, he is on broad-spectrum antibiotic therapy, he has evidence of multiorgan failure, ? Overnight he developed A-fib with RVR requiring moving down to the ICU with low blood pressure requiring amiodarone drip, currently off amiodarone drip, elevated troponins overnight cannot anticoagulate or put on antiplatelet therapy given esophageal gastric varices, EKG no acute ST-T wave changes EF is down to 15% ? I had a detailed discussion with patient's over the phone, discussed his critical condition, prognosis is poor she tells me that his condition has been declining over the last month, she has had multiple discussions about hospice, but she did not come to the realization his condition would worsen so quickly, she wants to be there before making him hospice, but she wants us to continue nonaggressive interventions for now until she comes the hospital he remains a DNR/DNI, ? I reached out to patient's emergency department clinician dr. ramsay,, patient was recently hospitalized at [facility] for worsening liver failure, acute liver failure with hepatic encephalopathy, at that time he tells told patient that he is at high risk of liver failure high risk of morbidity and mortality, that he is not a liver transplant candidate, currently he is not a liver transplant candidate, he advised continuing supportive interventions and or hospice based on family's discussion but he did discuss hospice with family he advised me that patient was noncompliant with medications and interventions ? I discussed with the patient's , I met her at bedside, I discussed that his MELD score is 33 indicating that he has a 3-month mortality of about 52%, ? We had a detailed discussion about his worsening liver failure, he is in acute liver failure, with his elevated liver markers INR, bili, with hepatorenal hepatopulmonary syndrome, we discussed the events overnight with his acute A-fib with RVR his NSTEMI, his elevated troponins his EF down to 15% cannot anticoagulate given his thrombocytopenia, his esophageal gastric varices, he has a high risk of morbidity and mortality and with his multiorgan failure acute renal failure, acute liver failure, as his acute cephalopathy, and his acute hypoxic respiratory failure, he is a poor candidate for any cardiac intervention, and any cardiac intervention would involve placing him on blood thinners but he has severe liver failure INR 6, and with his esophageal and gastric varices thrombocytopenia he to have a high risk of morbidity or mortality, ? We discussed options available to patient involving continuing ICU monitoring, continuing medical intervention and giving him time to see if he could get better from the acute liver failure and then we could potentially try to diurese him to help with his respiratory failure, and potentially consider doing stress testing and potential angiogram based on his clinical progress for his EF of 15%, and continue medical interventions continue antibiotics, supporting his kidneys, consulting nephrology, cardiology, we also discussed potentially transferring him to tertiary level center for consideration of liver transplant although currently I think he would likely pass away in transport he is a high risk of morbidity and mortality but we could consider if he could be seen by emergency department clinician at tertiary facility, or be a liver transplant candidate currently his MELD score is 3352% mortality with hepatorenal hepatopulmonary syndrome his kidney failure, his liver failure his pulmonary symptomatology his heart failure I do not think he would be a candidate for a liver transplant currently, but if he could get better eventually go home and have some degree of quality of life, he could be considered a liver transplant he does have severe peripheral vascular disease, so we would have to able to intervene at that's some point, as on examination his DP PT pulses are diminished, currently bilateral extremities are mottled, today they would be more worse compared to when they normally are, ? I also discussed hospice, easing his pain easing suffering allow him to pass with comfortably, with a goal of easing his pain, understanding that he has irreversible underlying liver, condition, and he has acute renal failure, cardiac failure, he is encephalopathic, he is a poor quality of life, ? After discussing with her all the risks and benefits all options, she voiced understanding, all questions answered, shared decision making, I gave her plenty of time to come to decision, she has decided to proceed with comfort care, ? Will move patient to medical floors, on comfort care Vitals/I&O/Wt Last Vital Signs Temp 98.2 F 10/22/23 12:00 Pulse 50 L 10/22/23 12:00 Resp 11 L 10/22/23 12:00 BP 92/54 10/22/23 12:00 Pulse Ox 96 10/22/23 12:00 O2 Del Method Nasal Cannula 10/22/23 12:00 O2 Flow Rate 2 10/22/23 12:00 10/22/23 10/22/23 10/22/23 06:59 14:59 22:59 Intake Total 307.333 / 944.264 100 / 100 Output Total 100 / 100 170 / 170 Balance 207.333 / 844.264 -70 / -70 Weight last 48 hrs Weight 85.956 kg Physical Exam 2 Const: EXAM LIMITATIONS: altered mental status GENERAL APPEARANCE: l ethargic ORIENTATION/CONSCIOUSNESS: Yes patient obtunded and Yes lethargic; not awake, not oriented to person, not oriented to place and not oriented to time OTHER: GCS is 4-5, does not respond to sternal rub does not respond to his name, does not withdraw from pain, scleral icterus, jaundice, Resp: OTHER: Tachypneic, on 10 L, nasal flaring, intercostal retractions, diffuse wheezing and crackles Cardio: COMMON NORMALS: regular rhythm, S1 normal heart sound present and S2 normal heart sound present RATE: bradycardic RHYTHM: regular rhythm H EART SOUNDS: S1 normal heart sound present and S2 normal heart sound present GI: OTHER: Abdomen soft, distended, diminished bowel sounds in all 4 quadrants, no guarding, no rebound, rigidity, fluid wave present Extremity: COMMON NORMALS: no pedal edema Neuro: SENSORIUM/ORIENTATION: No oriented to person, No oriented to place, No oriented to time and Yes lethargic Skin: NARRATIVE SKIN EXAM: Diffuse mottling bilateral lower extremities DP PT pulses are not palpable Data 10/22/23 04:37 10/22/23 04:37 Micro: Microbiology 10/15/23 10:10 Gram Stain - Final Peritoneal Fluid Anaerobic Culture - Final Body Fluid Culture - Final A&P Assessment and plan (1) Hepatic encephalopathy: (2) Ascites: (3) Rhabdomyolysis: (4) COVID-19: (5) Acute encephalopathy: (6) NSTEMI (non-ST elevated myocardial infarction): (7) Thrombocytopenia: (8) Hepatopulmonary syndrome: (9) Hepatorenal syndrome: (10) Acute liver failure with hepatic coma: (11) Systolic CHF, acute: (12) Acute hypoxic respiratory failure: (13) Acute renal failure: (14) Multiorgan failure: (15) Unresponsive state: (16) Esophageal varices: (17) Gastric varices: (18) Atrial fibrillation with RVR: (19) Shock: Plan Acute liver failure, decompensated liver failure with gastric varices, esophageal varices, with hepatorenal syndrome, hepatopulmonary syndrome, acute hypoxic respiratory failure, acute renal failure, EF of 15%, systolic CHF, A-fib with RVR, shock, hepatic coma, multiorgan failure, NSTEMI, hepatic encephalopathy, with underlying COVID-19,, proceeding with comfort care, hospice care Acute encephalopathy -Etiology unclear, but likely multifactorial - could be from hepatic encephalopathy, hyperammonemia, ammonia level 44 continue lactulose examination -Could be from possible history of alcoholism? on high-dose thiamine correction - this could be from COVID-19 -Follow blood cultures, ? MRI of the brain ordered ? Will order lumbar puncture to be done hopefully tomorrow ? Broaden antibiotic coverage to vancomycin, meropenem Hepatic encephalopathy ?continue lactulose ? Continue rifaximin Ascites ?currently abdomen is distended, no significant guarding, no rebound, rigidity ? Status post paracentesis October 15 6500 cc removed -Concerns for possible SBP? ? Currently cultures are negative, ? Broaden antibiotic coverage to vancomycin, meropenem Liver cirrhosis -T. bili 4.8, AST 335 ALT 135, bili elevated, albumin 3.1 total protein 6 ? Does have worsening liver numbers, will do liver ultrasound ?1. Cirrhosis with sequela of portal hypertension, including splenomegaly, extensive portosystemic collaterals including large gastric and esophageal varices, and large volume ascites. 2. Main portal vein is thrombosed with multiple venous collaterals in the macy hepatis, suggesting chronic thrombosis/cavernous transformation. Segment of the SMV is thrombosed. 3. Submucosal edema in the gastric antrum/pylorus, can be seen with gastritis or portal gastropathy. 4. Nonspecific lymphadenopathy may be related to portal hypertension. 5. Small left and trace right pleural effusions and right basilar atelectasis. ? Continue midodrine ? Continue albumin COVID-19, Completed remdesivir ? Given altered mental status, possible steroid encephalopathy ? Hold Decadron NSTEMI ? Serial EKGs, serial troponins, telemetry monitoring, Fluid overload, elevated BNP, currently on 2 L, with liver cirrhosis, ? 1 dose of Lasix today Lower extremity wounds. Vancomycin added. Local skin care. Avoid pressure. May have some concomitant peripheral vascular disease but will hold off on investigation considering other illnesses currently. Other medical problems as outlined in his past medical history Allow natural currently ? Patient was examined multiple times throughout the morning, and into the afternoon time with a family meeting with patient's at bedside, ? Early in the morning he was seen, he is on 2 of Levophed, in shock, blood pressures are soft 90s over 50s, sinus bradycardia, ? He does not awaken to sternal rub, ? He appears diffusely jaundiced, scleral icterus, abdominal distention,, ? Currently on 10 L oxymask, ? Currently he is in acute hypoxic respiratory failure, likely component of fluid overload, possible aspiration pneumonia, he is already on broad-spectrum antibiotic therapy, currently difficult to diurese, BNP is over 70,000, significant fluid overload, with elevated troponins, EF of 15%, with his soft blood pressures, renal failure, chronic send, extent?some degree of patient's hypoxic respiratory failure is likely hepatopulmonary syndrome, from severe liver failure ?currently on pressors from shock from respiratory failure, liver failure, acute renal failure, ? Patient is in acute renal failure, likely secondary to shock, likely hepatorenal syndrome, ? Patient's liver markers have increased, has markers of acute on chronic liver failure acute liver failure markers his INR of 6, bili of 7.6, lactic 5.7 creatinine 1.5, ? Patient has acute encephalopathy, does not awaken to sternal rub, GCS is 5, he is DNR/DNI, ? Patient had also has NSTEMI, currently, his EF is down to 15%, cannot anticoagulate given INR of 6, he also has severe liver cirrhosis, with liver cirrhosis portal hypertension, concerns for esophageal varices, and large gastric varices, seen on CT scan, cannot put on antiplatelet therapy due to esophageal gastric varices, thrombocytopenia, ? His Pro-Francisco and CRP are elevated, he is on broad-spectrum antibiotic therapy, he has evidence of multiorgan failure, ? Overnight he developed A-fib with RVR requiring moving down to the ICU with low blood pressure requiring amiodarone drip, currently off amiodarone drip, elevated troponins overnight cannot anticoagulate or put on antiplatelet therapy given esophageal gastric varices, EKG no acute ST-T wave changes EF is down to 15% ? I had a detailed discussion with patient's over the phone, discussed his critical condition, prognosis is poor she tells me that his condition has been declining over the last month, she has had multiple discussions about hospice, but she did not come to the realization his condition would worsen so quickly, she wants to be there before making him hospice, but she wants us to continue nonaggressive interventions for now until she comes the hospital he remains a DNR/DNI, ? I reached out to patient's emergency department clinician dr. ramsay,, patient was recently hospitalized at [facility] for worsening liver failure, acute liver failure with hepatic encephalopathy, at that time he tells told patient that he is at high risk of liver failure high risk of morbidity and mortality, that he is not a liver transplant candidate, currently he is not a liver transplant candidate, he advised continuing supportive interventions and or hospice based on family's discussion but he did discuss hospice with family he advised me that patient was noncompliant with medications and interventions ? I discussed with the patient's , I met her at bedside, I discussed that his MELD score is 33 indicating that he has a 3-month mortality of about 52%, ? We had a detailed discussion about his worsening liver failure, he is in acute liver failure, with his elevated liver markers INR, bili, with hepatorenal hepatopulmonary syndrome, we discussed the events overnight with his acute A-fib with RVR his NSTEMI, his elevated troponins his EF down to 15% cannot anticoagulate given his thrombocytopenia, his esophageal gastric varices, he has a high risk of morbidity and mortality and with his multiorgan failure acute renal failure, acute liver failure, as his acute cephalopathy, and his acute hypoxic respiratory failure, he is a poor candidate for any cardiac intervention, and any cardiac intervention would involve placing him on blood thinners but he has severe liver failure INR 6, and with his esophageal and gastric varices thrombocytopenia he to have a high risk of morbidity or mortality, ? We discussed options available to patient involving continuing ICU monitoring, continuing medical intervention and giving him time to see if he could get better from the acute liver failure and then we could potentially try to diurese him to help with his respiratory failure, and potentially consider doing stress testing and potential angiogram based on his clinical progress for his EF of 15%, and continue medical interventions continue antibiotics, supporting his kidneys, consulting nephrology, cardiology, we also discussed potentially transferring him to tertiary level center for consideration of liver transplant although currently I think he would likely pass away in transport he is a high risk of morbidity and mortality but we could consider if he could be seen by emergency department clinician at tertiary facility, or be a liver transplant candidate currently his MELD score is 3352% mortality with hepatorenal hepatopulmonary syndrome his kidney failure, his liver failure his pulmonary symptomatology his heart failure I do not think he would be a candidate for a liver transplant currently, but if he could get better eventually go home and have some degree of quality of life, he could be considered a liver transplant he does have severe peripheral vascular disease, so we would have to able to intervene at that's some point, as on examination his DP PT pulses are diminished, currently bilateral extremities are mottled, today they would be more worse compared to when they normally are, ? I also discussed hospice, easing his pain easing suffering allow him to pass with comfortably, with a goal of easing his pain, understanding that he has irreversible underlying liver, condition, and he has acute renal failure, cardiac failure, he is encephalopathic, he is a poor quality of life, ? After discussing with her all the risks and benefits all options, she voiced understanding, all questions answered, shared decision making, I gave her plenty of time to come to decision, she has decided to proceed with comfort care, ? Will move patient to medical floors, on comfort care Attestations 2 Medical Necessity Statement*: Patient requires hospitalization for comfort care, hospice care Coding Level of Care Code Critical Care >/= 30 minutes Critical care time (in minutes): 45 The high probability of a clinically significant, sudden or life threatening deterioration, as referenced in this documentation, required my full and direct attention, intervention and personal management. The critical care time shown is in addition to time spent performing any reported separately billable procedures and includes the following: [x] Data and vital sign review and interpretation [x ] Patient assessment, examination and intervention [x] Medication orders and management [x] Patient/Family updates as able [x] Care Coordination and Documentation. Diagnoses Hepatic encephalopathy K76.82 Ascites R18.8 Rhabdomyolysis M62.82 COVID-19 U07.1 Acute encephalopathy G93.40 NSTEMI (non-ST elevated myocardial infarction) I21.4 Thrombocytopenia D69.6 Hepatopulmonary syndrome K76.81 Hepatorenal syndrome K76.7 Acute liver failure with hepatic coma K72.01 Systolic CHF, acute I50.21 Acute hypoxic respiratory failure J96.01 Acute renal failure N17.9 Multiorgan failure Unresponsive state R41.89 Esophageal varices I85.00 Gastric varices I86.4 Atrial fibrillation with RVR I48.91 Shock R57.9
[2023-10-22] MEDS: saliva stimulant spray 30 mL Btl 1 SPRAY MUCOUS MEM (16:22)
[2023-10-22 18:38] LABS: Glucose Point of Care 114 mg/dL (70-110)
[2023-10-22] MEDS: atropine 1% op soln 2 mL Btl 3 DROP SUBLINGUAL (20:46)
[2023-10-22] MEDS: LORazepam 2 mg/mL INJ 10 mL MDV IVP (23:20)
[2023-10-23] MEDS: morphine 10 mg/0.5 mL oral liq UD SUBLINGUAL ×3 (00:03→06:33)
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
[2023-10-23 08:00] VITALS: BP 84/51
[2023-10-23] MEDS: morphine 4 mg/mL SDV 1 mL IVP ×2 (08:08→23:09)
[2023-10-23] MEDS: LORazepam 2 mg/mL INJ 10 mL MDV IVP (08:08)
[2023-10-23 12:00] VITALS: BP 95/57; PULSE 90; RESP 18; TEMP 36.4; O2SAT 96
--- NOTE | 2023-10-23 18:15 | P.PN_ITS ---
Subjective 2 Subjective: Patient was seen this morning, he is nonresponsive, at times he does awaken, but does not follow commands, hypotensive, normal sinus rhythm, intermittently tachypneic, appears jaundiced, with scleral icterus Vitals/I&O/Wt Last Vital Signs Temp 97.6 F 10/23/23 12:00 Pulse 90 10/23/23 12:00 Resp 18 10/23/23 12:00 BP 95/57 10/23/23 12:00 Pulse Ox 96 10/23/23 12:00 O2 Del Method Nasal Cannula 10/22/23 23:24 O2 Flow Rate 4.5 10/22/23 23:24 10/23/23 10/23/23 10/23/23 06:59 14:59 22:59 Intake Total 360 / 360 Output Total 400 / 970 Balance -400 / -820 360 / 360 Weight last 48 hrs Weight 88.961 kg Physical Exam 2 Const: COMMON NORMALS: no acute distress HENMT: COMMON NORMALS: normocephalic HEAD & SCALP: normocephalic Resp: COMMON NORMALS: normal respiratory effort, No retractions and No use of accessory muscles AUSCULTATION: crackles Cardio: COMMON NORMALS: regular rate, regular rhythm, S1 normal heart sound present and S2 normal heart sound present RATE: regular rate RHYTHM: r egular rhythm HEART SOUNDS: S1 normal heart sound present and S2 normal heart sound present GI: COMMON NORMALS: Normal to inspection, nondistended, normoactive bowel sounds present and non-tender Extremity: COMMON NORMALS: no pedal edema Urinary Catheter Management: Hagen: Cath Placed During This Visit: yes Reason for Continuing Indwelling Catheter: Hospice/Comfort/Palliative Care Urinary Catheter Date of Insertion: 10/21/23 Urinary Catheter Time of Insertion: 16:30 Data 10/22/23 04:37 10/22/23 04:37 A&P Assessment and plan (1) Hepatic encephalopathy: (2) Ascites: (3) Rhabdomyolysis: (4) COVID-19: (5) Acute encephalopathy: (6) NSTEMI (non-ST elevated myocardial infarction): (7) Thrombocytopenia: (8) Hepatopulmonary syndrome: (9) Hepatorenal syndrome: (10) Acute liver failure with hepatic coma: (11) Systolic CHF, acute: (12) Acute hypoxic respiratory failure: (13) Acute renal failure: (14) Multiorgan failure: (15) Unresponsive state: (16) Esophageal varices: (17) Gastric varices: (18) Atrial fibrillation with RVR: (19) Shock: Plan Acute liver failure, decompensated liver failure with gastric varices, esophageal varices, with hepatorenal syndrome, hepatopulmonary syndrome, acute hypoxic respiratory failure, acute renal failure, EF of 15%, systolic CHF, A-fib with RVR, shock, hepatic coma, multiorgan failure, NSTEMI, hepatic encephalopathy, with underlying COVID-19,, proceeding with comfort care, hospice care Acute encephalopathy -Etiology unclear, but likely multifactorial - could be from hepatic encephalopathy, hyperammonemia, ammonia level 44 continue lactulose examination -Could be from possible history of alcoholism? on high-dose thiamine correction - this could be from COVID-19 -Follow blood cultures, ? MRI of the brain ordered ? Will order lumbar puncture to be done hopefully tomorrow ? Broaden antibiotic coverage to vancomycin, meropenem Hepatic encephalopathy ?continue lactulose ? Continue rifaximin Ascites ?currently abdomen is distended, no significant guarding, no rebound, rigidity ? Status post paracentesis October 15 6500 cc removed -Concerns for possible SBP? ? Currently cultures are negative, ? Broaden antibiotic coverage to vancomycin, meropenem Liver cirrhosis -T. bili 4.8, AST 335 ALT 135, bili elevated, albumin 3.1 total protein 6 ? Does have worsening liver numbers, will do liver ultrasound ?1. Cirrhosis with sequela of portal hypertension, including splenomegaly, extensive portosystemic collaterals including large gastric and esophageal varices, and large volume ascites. 2. Main portal vein is thrombosed with multiple venous collaterals in the macy hepatis, suggesting chronic thrombosis/cavernous transformation. Segment of the SMV is thrombosed. 3. Submucosal edema in the gastric antrum/pylorus, can be seen with gastritis or portal gastropathy. 4. Nonspecific lymphadenopathy may be related to portal hypertension. 5. Small left and trace right pleural effusions and right basilar atelectasis. ? Continue midodrine ? Continue albumin COVID-19, Completed remdesivir ? Given altered mental status, possible steroid encephalopathy ? Hold Decadron NSTEMI ? Serial EKGs, serial troponins, telemetry monitoring, Fluid overload, elevated BNP, currently on 2 L, with liver cirrhosis, ? 1 dose of Lasix today Lower extremity wounds. Vancomycin added. Local skin care. Avoid pressure. May have some concomitant peripheral vascular disease but will hold off on investigation considering other illnesses currently. Other medical problems as outlined in his past medical history Allow natural currently ? Patient was examined multiple times throughout the morning, and into the afternoon time with a family meeting with patient's at bedside, ? Early in the morning he was seen, he is on 2 of Levophed, in shock, blood pressures are soft 90s over 50s, sinus bradycardia, ? He does not awaken to sternal rub, ? He appears diffusely jaundiced, scleral icterus, abdominal distention,, ? Currently on 10 L oxymask, ? Currently he is in acute hypoxic respiratory failure, likely component of fluid overload, possible aspiration pneumonia, he is already on broad-spectrum antibiotic therapy, currently difficult to diurese, BNP is over 70,000, significant fluid overload, with elevated troponins, EF of 15%, with his soft blood pressures, renal failure, chronic send, extent?some degree of patient's hypoxic respiratory failure is likely hepatopulmonary syndrome, from severe liver failure ?currently on pressors from shock from respiratory failure, liver failure, acute renal failure, ? Patient is in acute renal failure, likely secondary to shock, likely hepatorenal syndrome, ? Patient's liver markers have increased, has markers of acute on chronic liver failure acute liver failure markers his INR of 6, bili of 7.6, lactic 5.7 creatinine 1.5, ? Patient has acute encephalopathy, does not awaken to sternal rub, GCS is 5, he is DNR/DNI, ? Patient had also has NSTEMI, currently, his EF is down to 15%, cannot anticoagulate given INR of 6, he also has severe liver cirrhosis, with liver cirrhosis portal hypertension, concerns for esophageal varices, and large gastric varices, seen on CT scan, cannot put on antiplatelet therapy due to esophageal gastric varices, thrombocytopenia, ? His Pro-Francisco and CRP are elevated, he is on broad-spectrum antibiotic therapy, he has evidence of multiorgan failure, ? Overnight he developed A-fib with RVR requiring moving down to the ICU with low blood pressure requiring amiodarone drip, currently off amiodarone drip, elevated troponins overnight cannot anticoagulate or put on antiplatelet therapy given esophageal gastric varices, EKG no acute ST-T wave changes EF is down to 15% ? I had a detailed discussion with patient's over the phone, discussed his critical condition, prognosis is poor she tells me that his condition has been declining over the last month, she has had multiple discussions about hospice, but she did not come to the realization his condition would worsen so quickly, she wants to be there before making him hospice, but she wants us to continue nonaggressive interventions for now until she comes the hospital he remains a DNR/DNI, ? I reached out to patient's lens mold setter dr. ramsay,, patient was recently hospitalized at [facility] for worsening liver failure, acute liver failure with hepatic encephalopathy, at that time he tells told patient that he is at high risk of liver failure high risk of morbidity and mortality, that he is not a liver transplant candidate, currently he is not a liver transplant candidate, he advised continuing supportive interventions and or hospice based on family's discussion but he did discuss hospice with family he advised me that patient was noncompliant with medications and interventions ? I discussed with the patient's , I met her at bedside, I discussed that his MELD score is 33 indicating that he has a 3-month mortality of about 52%, ? We had a detailed discussion about his worsening liver failure, he is in acute liver failure, with his elevated liver markers INR, bili, with hepatorenal hepatopulmonary syndrome, we discussed the events overnight with his acute A-fib with RVR his NSTEMI, his elevated troponins his EF down to 15% cannot anticoagulate given his thrombocytopenia, his esophageal gastric varices, he has a high risk of morbidity and mortality and with his multiorgan failure acute renal failure, acute liver failure, as his acute cephalopathy, and his acute hypoxic respiratory failure, he is a poor candidate for any cardiac intervention, and any cardiac intervention would involve placing him on blood thinners but he has severe liver failure INR 6, and with his esophageal and gastric varices thrombocytopenia he to have a high risk of morbidity or mortality, ? We discussed options available to patient involving continuing ICU monitoring, continuing medical intervention and giving him time to see if he could get better from the acute liver failure and then we could potentially try to diurese him to help with his respiratory failure, and potentially consider doing stress testing and potential angiogram based on his clinical progress for his EF of 15%, and continue medical interventions continue antibiotics, supporting his kidneys, consulting nephrology, cardiology, we also discussed potentially transferring him to tertiary level center for consideration of liver transplant although currently I think he would likely pass away in transport he is a high risk of morbidity and mortality but we could consider if he could be seen by lens mold setter at tertiary facility, or be a liver transplant candidate currently his MELD score is 3352% mortality with hepatorenal hepatopulmonary syndrome his kidney failure, his liver failure his pulmonary symptomatology his heart failure I do not think he would be a candidate for a liver transplant currently, but if he could get better eventually go home and have some degree of quality of life, he could be considered a liver transplant he does have severe peripheral vascular disease, so we would have to able to intervene at that's some point, as on examination his DP PT pulses are diminished, currently bilateral extremities are mottled, today they would be more worse compared to when they normally are, ? I also discussed hospice, easing his pain easing suffering allow him to pass with comfortably, with a goal of easing his pain, understanding that he has irreversible underlying liver, condition, and he has acute renal failure, cardiac failure, he is encephalopathic, he is a poor quality of life, ? After discussing with her all the risks and benefits all options, she voiced understanding, all questions answered, shared decision making, I gave her plenty of time to come to decision, she has decided to proceed with comfort care, ? Will move patient to medical floors, on comfort care Attestations 2 Medical Necessity Statement*: Patient requires hospitalization for comfort care hospice Diagnoses Hepatic encephalopathy K76.82 Ascites R18.8 Rhabdomyolysis M62.82 COVID-19 U07.1 Acute encephalopathy G93.40 NSTEMI (non-ST elevated myocardial infarction) I21.4 Thrombocytopenia D69.6 Hepatopulmonary syndrome K76.81 Hepatorenal syndrome K76.7 Acute liver failure with hepatic coma K72.01 Systolic CHF, acute I50.21 Acute hypoxic respiratory failure J96.01 Acute renal failure N17.9 Multiorgan failure Unresponsive state R41.89 Esophageal varices I85.00 Gastric varices I86.4 Atrial fibrillation with RVR I48.91 Shock R57.9
[2023-10-23 19:16] VITALS: BP 116/68; PULSE 101; RESP 14; TEMP 36.9; O2SAT 92
[2023-10-23] MEDS: glycopyrrolate 0.2 mg/mL SDV 2 mL IV (20:16)
[2023-10-24] MEDS: LORazepam 2 mg/mL INJ 10 mL MDV IVP ×2 (02:04→08:27)
[2023-10-24] MEDS: morphine 10 mg/0.5 mL oral liq UD SUBLINGUAL (03:44)
[2023-10-24] MEDS: glycopyrrolate 0.2 mg/mL SDV 2 mL IV (03:44)
[2023-10-24] MEDS: morphine 4 mg/mL SDV 1 mL IVP (11:36)
[2023-10-24] MEDS: haloperidol inj 5 mg/mL INJ 1 mL 1 MG IVP (11:36)
[2023-10-24 14:31] VITALS: O2SAT 90
--- NOTE | 2023-10-24 17:26 | P.PN_ITS ---
Subjective 2 Subjective: Patient was seen this morning, he is nonresponsive, is at bedside, had discussion with , she plans on taking him home on hospice versus hospice at [facility] facility based on availability, insurance coverage Vitals/I&O/Wt Last Vital Signs Temp 98.5 F 10/23/23 19:16 Pulse 101 H 10/23/23 19:16 Resp 14 10/23/23 19:16 BP 116/68 10/23/23 19:16 Pulse Ox 90 10/24/23 14:31 O2 Del Method Nasal Cannula 10/24/23 14:31 O2 Flow Rate 2 10/24/23 14:31 10/24/23 10/24/23 10/24/23 06:59 14:59 22:59 Output Total 300 / 1075 Balance -300 / -715 Weight last 48 hrs Weight 40.823 kg Weight 88.961 kg Physical Exam 2 Const: COMMON NORMALS: no acute distress Resp: COMMON NORMALS: normal respiratory effort, No retractions and No use of accessory muscles AUSCULTATION: crackles and rhonchi Cardio: COMMON NORMALS: regular rate, regular rhythm, S1 normal heart sound present and S2 normal heart sound present RATE: regular rate RHYTHM: r egular rhythm HEART SOUNDS: S1 normal heart sound present and S2 normal heart sound present GI: OTHER: Jaundiced appearing abdomen soft, distended Extremity: COMMON NORMALS: no pedal edema Urinary Catheter Management: Hagen: Cath Placed During This Visit: yes Reason for Continuing Indwelling Catheter: Hospice/Comfort/Palliative Care Urinary Catheter Date of Insertion: 10/21/23 Urinary Catheter Time of Insertion: 16:30 Data 10/22/23 04:37 10/22/23 04:37 A&P Assessment and plan (1) Hepatic encephalopathy: (2) Ascites: (3) Rhabdomyolysis: (4) COVID-19: (5) Acute encephalopathy: (6) NSTEMI (non-ST elevated myocardial infarction): (7) Thrombocytopenia: (8) Hepatopulmonary syndrome: (9) Hepatorenal syndrome: (10) Acute liver failure with hepatic coma: (11) Systolic CHF, acute: (12) Acute hypoxic respiratory failure: (13) Acute renal failure: (14) Multiorgan failure: (15) Unresponsive state: (16) Esophageal varices: (17) Gastric varices: (18) Atrial fibrillation with RVR: (19) Shock: Plan Acute liver failure, decompensated liver failure with gastric varices, esophageal varices, with hepatorenal syndrome, hepatopulmonary syndrome, acute hypoxic respiratory failure, acute renal failure, EF of 15%, systolic CHF, A-fib with RVR, shock, hepatic coma, multiorgan failure, NSTEMI, hepatic encephalopathy, with underlying COVID-19,, proceeding with comfort care Acute encephalopathy -Etiology unclear, but likely multifactorial - could be from hepatic encephalopathy, hyperammonemia, ammonia level 44 continue lactulose examination -Could be from possible history of alcoholism? on high-dose thiamine correction - this could be from COVID-19 -Follow blood cultures, ? MRI of the brain ordered ? Will order lumbar puncture to be done hopefully tomorrow ? Broaden antibiotic coverage to vancomycin, meropenem Hepatic encephalopathy ?continue lactulose ? Continue rifaximin Ascites ?currently abdomen is distended, no significant guarding, no rebound, rigidity ? Status post paracentesis October 15 6500 cc removed -Concerns for possible SBP? ? Currently cultures are negative, ? Broaden antibiotic coverage to vancomycin, meropenem Liver cirrhosis -T. bili 4.8, AST 335 ALT 135, bili elevated, albumin 3.1 total protein 6 ? Does have worsening liver numbers, will do liver ultrasound ?1. Cirrhosis with sequela of portal hypertension, including splenomegaly, extensive portosystemic collaterals including large gastric and esophageal varices, and large volume ascites. 2. Main portal vein is thrombosed with multiple venous collaterals in the macy hepatis, suggesting chronic thrombosis/cavernous transformation. Segment of the SMV is thrombosed. 3. Submucosal edema in the gastric antrum/pylorus, can be seen with gastritis or portal gastropathy. 4. Nonspecific lymphadenopathy may be related to portal hypertension. 5. Small left and trace right pleural effusions and right basilar atelectasis. ? Continue midodrine ? Continue albumin COVID-19, Completed remdesivir ? Given altered mental status, possible steroid encephalopathy ? Hold Decadron NSTEMI ? Serial EKGs, serial troponins, telemetry monitoring, Fluid overload, elevated BNP, currently on 2 L, with liver cirrhosis, ? 1 dose of Lasix today Lower extremity wounds. Vancomycin added. Local skin care. Avoid pressure. May have some concomitant peripheral vascular disease but will hold off on investigation considering other illnesses currently. Other medical problems as outlined in his past medical history Allow natural currently ? Patient was examined multiple times throughout the morning, and into the afternoon time with a family meeting with patient's at bedside, ? Early in the morning he was seen, he is on 2 of Levophed, in shock, blood pressures are soft 90s over 50s, sinus bradycardia, ? He does not awaken to sternal rub, ? He appears diffusely jaundiced, scleral icterus, abdominal distention,, ? Currently on 10 L oxymask, ? Currently he is in acute hypoxic respiratory failure, likely component of fluid overload, possible aspiration pneumonia, he is already on broad-spectrum antibiotic therapy, currently difficult to diurese, BNP is over 70,000, significant fluid overload, with elevated troponins, EF of 15%, with his soft blood pressures, renal failure, chronic send, extent?some degree of patient's hypoxic respiratory failure is likely hepatopulmonary syndrome, from severe liver failure ?currently on pressors from shock from respiratory failure, liver failure, acute renal failure, ? Patient is in acute renal failure, likely secondary to shock, likely hepatorenal syndrome, ? Patient's liver markers have increased, has markers of acute on chronic liver failure acute liver failure markers his INR of 6, bili of 7.6, lactic 5.7 creatinine 1.5, ? Patient has acute encephalopathy, does not awaken to sternal rub, GCS is 5, he is DNR/DNI, ? Patient had also has NSTEMI, currently, his EF is down to 15%, cannot anticoagulate given INR of 6, he also has severe liver cirrhosis, with liver cirrhosis portal hypertension, concerns for esophageal varices, and large gastric varices, seen on CT scan, cannot put on antiplatelet therapy due to esophageal gastric varices, thrombocytopenia, ? His Pro-Francisco and CRP are elevated, he is on broad-spectrum antibiotic therapy, he has evidence of multiorgan failure, ? Overnight he developed A-fib with RVR requiring moving down to the ICU with low blood pressure requiring amiodarone drip, currently off amiodarone drip, elevated troponins overnight cannot anticoagulate or put on antiplatelet therapy given esophageal gastric varices, EKG no acute ST-T wave changes EF is down to 15% ? I had a detailed discussion with patient's over the phone, discussed his critical condition, prognosis is poor she tells me that his condition has been declining over the last month, she has had multiple discussions about hospice, but she did not come to the realization his condition would worsen so quickly, she wants to be there before making him hospice, but she wants us to continue nonaggressive interventions for now until she comes the hospital he remains a DNR/DNI, ? I reached out to patient's parts facilitator dr. ramsay,, patient was recently hospitalized at [facility] for worsening liver failure, acute liver failure with hepatic encephalopathy, at that time he tells told patient that he is at high risk of liver failure high risk of morbidity and mortality, that he is not a liver transplant candidate, currently he is not a liver transplant candidate, he advised continuing supportive interventions and or hospice based on family's discussion but he did discuss hospice with family he advised me that patient was noncompliant with medications and interventions ? I discussed with the patient's , I met her at bedside, I discussed that his MELD score is 33 indicating that he has a 3-month mortality of about 52%, ? We had a detailed discussion about his worsening liver failure, he is in acute liver failure, with his elevated liver markers INR, bili, with hepatorenal hepatopulmonary syndrome, we discussed the events overnight with his acute A-fib with RVR his NSTEMI, his elevated troponins his EF down to 15% cannot anticoagulate given his thrombocytopenia, his esophageal gastric varices, he has a high risk of morbidity and mortality and with his multiorgan failure acute renal failure, acute liver failure, as his acute cephalopathy, and his acute hypoxic respiratory failure, he is a poor candidate for any cardiac intervention, and any cardiac intervention would involve placing him on blood thinners but he has severe liver failure INR 6, and with his esophageal and gastric varices thrombocytopenia he to have a high risk of morbidity or mortality, ? We discussed options available to patient involving continuing ICU monitoring, continuing medical intervention and giving him time to see if he could get better from the acute liver failure and then we could potentially try to diurese him to help with his respiratory failure, and potentially consider doing stress testing and potential angiogram based on his clinical progress for his EF of 15%, and continue medical interventions continue antibiotics, supporting his kidneys, consulting nephrology, cardiology, we also discussed potentially transferring him to tertiary level center for consideration of liver transplant although currently I think he would likely pass away in transport he is a high risk of morbidity and mortality but we could consider if he could be seen by parts facilitator at tertiary facility, or be a liver transplant candidate currently his MELD score is 3352% mortality with hepatorenal hepatopulmonary syndrome his kidney failure, his liver failure his pulmonary symptomatology his heart failure I do not think he would be a candidate for a liver transplant currently, but if he could get better eventually go home and have some degree of quality of life, he could be considered a liver transplant he does have severe peripheral vascular disease, so we would have to able to intervene at that's some point, as on examination his DP PT pulses are diminished, currently bilateral extremities are mottled, today they would be more worse compared to when they normally are, ? I also discussed hospice, easing his pain easing suffering allow him to pass with comfortably, with a goal of easing his pain, understanding that he has irreversible underlying liver, condition, and he has acute renal failure, cardiac failure, he is encephalopathic, he is a poor quality of life, ? After discussing with her all the risks and benefits all options, she voiced understanding, all questions answered, shared decision making, I gave her plenty of time to come to decision, she has decided to proceed with comfort care, ? Will move patient to medical floors, on comfort care Attestations 2 Medical Necessity Statement*: Patient requires hospitalization for comfort care Diagnoses Hepatic encephalopathy K76.82 Ascites R18.8 Rhabdomyolysis M62.82 COVID-19 U07.1 Acute encephalopathy G93.40 NSTEMI (non-ST elevated myocardial infarction) I21.4 Thrombocytopenia D69.6 Hepatopulmonary syndrome K76.81 Hepatorenal syndrome K76.7 Acute liver failure with hepatic coma K72.01 Systolic CHF, acute I50.21 Acute hypoxic respiratory failure J96.01 Acute renal failure N17.9 Multiorgan failure Unresponsive state R41.89 Esophageal varices I85.00 Gastric varices I86.4 Atrial fibrillation with RVR I48.91 Shock R57.9
[2023-10-24 20:00] VITALS: BP 89/59; PULSE 153; RESP 24; TEMP 39; O2SAT 88
[2023-10-25 00:11] VITALS: RESP 16
[2023-10-25] MEDS: LORazepam 2 mg/mL INJ 10 mL MDV IVP (00:11)
[2023-10-25] MEDS: morphine 4 mg/mL SDV 1 mL IVP (00:11)
[2023-10-25 04:00] VITALS: BP 111/46; PULSE 84; RESP 14; TEMP 38.6; O2SAT 89
[2023-10-25] MEDS: acetaminophen 650 mg Supp PR (04:53)
[2023-10-25 07:19] VITALS: BP 106/58; PULSE 103; RESP 16; TEMP 37.9; O2SAT 89
[2023-10-25 08:38] VITALS: PULSE 96; O2SAT 91
[2023-10-25] MEDS: blistex lip oint 7 gm Tube 1 APPLIC TOPICAL (10:27)
[2023-10-25 11:58] VITALS: BP 109/49; PULSE 84; RESP 16; TEMP 36.9; O2SAT 90
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
[2023-10-25 14:20] VITALS: BP 109/49; PULSE 84; RESP 16; TEMP 36.9; O2SAT 90
== END 2023-10-25 14:00 | disposition hospice, home (50) | DRG 441 ==
LOC: ER 22:19 → ICU 23:35 → MEDSURG 10-19 21:39 → ICU 10-21 17:08 → MEDSURG 10-22 17:07
PROVIDERS: Internal Medicine; Student in an Organized Health Care Education/Training Program; Admitting Provider Student in an Organized Health Care Education/Training Program; Emergency Provider Family Medicine; Visit Provider Family Medicine
DX: K72.01 Acute and subacute hepatic failure with coma (principal); B19.21 Unspecified viral hepatitis C with hepatic coma; K72.11 Chronic hepatic failure with coma; I21.4 Non-ST elevation (NSTEMI) myocardial infarction; U07.1 COVID-19; J96.01 Acute respiratory failure with hypoxia; K76.7 Hepatorenal syndrome; I50.21 Acute systolic (congestive) heart failure; K76.6 Portal hypertension; G93.40 Encephalopathy, unspecified; I48.20 Chronic atrial fibrillation, unspecified; L97.929 Non-pressure chronic ulcer of unspecified part of left lower leg with unspecified severity; L97.919 Non-pressure chronic ulcer of unspecified part of right lower leg with unspecified severity; R18.8 Other ascites; M62.82 Rhabdomyolysis; R57.9 Shock, unspecified; N17.9 Acute kidney failure, unspecified; I85.00 Esophageal varices without bleeding; K74.69 Other cirrhosis of liver; F19.21 Other psychoactive substance dependence, in remission; Z91.148 Patient's other noncompliance with medication regimen for other reason; Z91.199 Patient's noncompliance with other medical treatment and regimen due to unspecified reason; Z66 Do not resuscitate; N18.9 Chronic kidney disease, unspecified; E86.1 Hypovolemia; I73.9 Peripheral vascular disease, unspecified; I86.4 Gastric varices; Z51.5 Encounter for palliative care; D69.6 Thrombocytopenia, unspecified; R00.1 Bradycardia, unspecified; K76.81 Hepatopulmonary syndrome
CPT/HCPCS: 36415; 36416; 36573; 36591; 36600; 49083; 51702; 70450; 71045; 74177; 76705; 80051; 80053; 80202; 80306; 80307; 80503; 81001; 82042; 82140; 82150; 82248; 82330; 82465; 82550; 82553; 82803; 82805; 82962; 82977; 83605; 83690; 83735; 83880; 83986; 84075; 84100; 84145; 84157; 84315; 84443; 84478; 84484; 85025; 85610; 85730; 86140; 87040; 87070; 87075; 87086; 87205; 87426; 87486; 87581; 87633; 87804; 88112; 88305; 89050; 93005; 93306; 96365; 96367; 96372; 96375; 96376; 99285; C1751; J0248; J0282; J0283; J0696; J1100; J1160; J1630; J1885; J1940; J2060; J2185; J2270; J2405; J3370; J3372; J3411; J3475; J3480; J3490; J7030; J7060; P9046; Q9967